=== PATIENT | male | born 1960 | race Caucasian/White ===

== ENCOUNTER 2018-06-02 13:31 | Inpatient (IN) | payer SELFPAY ==
[~2018-06-02] VITALS: Ht 175.3 cm; Wt 102.1 kg
[2018-06-02] MEDS ORDERED: IV NORMAL SALINE 1000ML BAG 1,000 ML IV ONE ×2 (14:15→15:30)
[2018-06-02] MEDS ORDERED: ONDANSETRON PF 4 MG/2 ML VIAL. IV ONE (14:15)
[2018-06-02] MEDS ORDERED: MORPHINE SULFATE 4 MG/ML VIAL. IV ONE (14:15)
--- NOTE | 2018-06-02 14:33 | PHYS DOC ---
Past Medical History Past Medical History: No Pertinent History Past Surgical History: Appendectomy, Other Additional Past Surgical Histo: BACK AND EYE Alcohol Use: Occasionally Drug Use: None Adult General Chief Complaint Chief Complaint: Neck Pain HPI HPI Patient is a 58 year old male with history of some recurrent soft tissue infections who presents with large tender swollen region over the base of right occiput. Symptom onset yesterday. Patient states the skin areas since grown rapidly. Reports intense pain worse with palpation and movement. Pain is currently rated 10 out of 10. Reports chills, no fever nausea or sweats. Patient also with superficial skin lesion over right oral eyebrow and larger patches cellulitis over right torso. Patient is not on diabetic. No other acute symptoms or complaints. [] Review of Systems Review of Systems Review symptoms as per history of present illness. All other review symptoms are negative. [] All other systems were reviewed and found to be within normal limits, except as documented in this note. Current Medications Current Medications Current Medications Medications (Trade) Dose Ordered Sig/Kole Start Time Stop Time Status Last Admin Dose Admin Iohexol (Omnipaque 300 Mg/ml) 75 ml 1X ONCE 06/02/18 14:45 06/02/18 14:46 DC 06/02/18 15:13 75 ML Morphine Sulfate (Morphine Sulfate) 4 mg 1X ONCE 06/02/18 14:15 06/02/18 14:16 DC 06/02/18 14:34 4 MG Ondansetron HCl (Zofran) 4 mg 1X ONCE 06/02/18 14:15 06/02/18 14:16 DC 06/02/18 14:35 4 MG Sodium Chloride 1,000 ml @ 1,000 mls/hr 1X ONCE 06/02/18 15:30 06/02/18 16:29 Vancomycin HCl (Vanco Per Pharmacy) 1 each PRN DAILY PRN 06/02/18 15:30 UNV Vancomycin HCl 2 gm/Sodium Chloride 500 ml @ 250 mls/hr 1X ONCE 06/02/18 16:00 06/02/18 17:59 06/02/18 15:49 250 MLS/HR Allergies Allergies Allergies Coded Allergies Type Severity Reaction Last Updated Verified No Known Drug Allergies 01/07/16 No Physical Exam Physical Exam Constitutional: Well developed, well nourished, no acute distress, non-toxic appearance. [] HENT: Normocephalic, off tissue infection, base of right occiput, extending into neck, tenderto palpation, rated, no appreciated pointing or shortness, bilateral external ears normal, oropharynx moist, no oral exudates, nose normal. [] Eyes: PERRLA, EOMI, conjunctiva normal. [] Neck: Albaro, . [] Cardiovascular:Heart rate regular rhythm, no murmur [] Lungs & Thorax: Bilateral breath sounds clear to auscultation [] Abdomen: Bowel sounds normal, soft, no tenderness, no masses, no pulsatile masses. [] Skin: Warm, dry, no erythema, no rash. [] Back: No tenderness, no CVA tenderness. [] Extremities: No tenderness, no cyanosis, no clubbing, ROM intact, no edema. [] Neurologic: Alert and oriented X 3, normal motor function, normal sensory function, no focal deficits noted. [] Psychologic: Affect normal, judgement normal, mood normal. [] Current Patient Data Vital Signs Vital Signs Date Time Temp Pulse Resp B/P (MAP) Pulse Ox O2 Delivery O2 Flow Rate FiO2 06/02/18 14:34 24 06/02/18 14:04 98.3 70 125/67 (86) 94 Room Air 98.3 Lab Values Laboratory Tests Test 06/02/18 14:20 White Blood Count 15.3 x10^3/uL (4.0-11.0) H Red Blood Count 4.89 x10^6/uL (4.30-5.70) Hemoglobin 14.9 g/dL (13.0-17.5) Hematocrit 43.2 % (39.0-53.0) Mean Corpuscular Volume 89 fL (79-100) Mean Corpuscular Hemoglobin 30 pg (25-35) Mean Corpuscular Hemoglobin Concent 34 g/dL (31-37) Red Cell Distribution Width 14.3 % (11.5-14.5) Platelet Count 195 x10^3/uL (140-400) Neutrophils (%) (Auto) 82 % (31-73) H Lymphocytes (%) (Auto) 9 % (24-48) L Monocytes (%) (Auto) 7 % (0-9) Eosinophils (%) (Auto) 1 % (0-3) Basophils (%) (Auto) 1 % (0-3) Neutrophils # (Auto) 12.5 x10^3uL (1.8-7.7) H Lymphocytes # (Auto) 1.4 x10^3/uL (1.0-4.8) Monocytes # (Auto) 1.1 x10^3/uL (0.0-1.1) Eosinophils # (Auto) 0.2 x10^3/uL (0.0-0.7) Basophils # (Auto) 0.2 x10^3/uL (0.0-0.2) Sodium Level 138 mmol/L (136-145) Potassium Level 3.3 mmol/L (3.5-5.1) L Chloride Level 102 mmol/L (98-107) Carbon Dioxide Level 24 mmol/L (21-32) Anion Gap 12 (6-14) Blood Urea Nitrogen 9 mg/dL (8-26) Creatinine 1.0 mg/dL (0.7-1.3) Estimated GFR (Cockcroft-Gault) 77.0 BUN/Creatinine Ratio 9 (6-20) Glucose Level 130 mg/dL (70-99) H Lactic Acid Level 2.9 mmol/L (0.4-2.0) H Calcium Level 8.5 mg/dL (8.5-10.1) Total Bilirubin 0.5 mg/dL (0.2-1.0) Aspartate Amino Transferase (AST) 24 U/L (15-37) Alanine Aminotransferase (ALT) 48 U/L (16-63) Alkaline Phosphatase 147 U/L (46-116) H C-Reactive Protein, Quantitative 15.5 mg/L (0-3.3) H Total Protein 6.7 g/dL (6.4-8.2) Albumin 3.1 g/dL (3.4-5.0) L Albumin/Globulin Ratio 0.9 (1.0-1.7) L Laboratory Tests 06/02/18 14:20 Laboratory Tests 06/02/18 14:20 EKG EKG [] Radiology/Procedures Radiology/Procedures [] Course & Med Decision Making Course & Med Decision Making Pertinent Labs and Imaging studies reviewed. (See chart for details) [Aggressive cellulitis right posterior scalp sending into subcutaneous tissue. IV fluids, antibiotics and pain medication given. Will admit to the hospitalist service for further evaluation and treatment.] Dragon Disclaimer Dragon Disclaimer This electronic medical record was generated, in whole or in part, using a voice recognition dictation system. Departure Departure Impression: Primary Impression: Cellulitis of scalp Additional Impression: Cellulitis of neck Disposition: 09 ADMITTED INPATIENT Admitting Physician: Rusty Gallo Condition: GUARDED Referrals: NO PCP (PCP) Problem Qualifiers SONIYA MORILLO DO Jun 02, 2018 14:33
[2018-06-02 14:34] LABS: BASO # 0.2 x10^3/uL (0.0-0.2); BASO % 1 % (0-3); EOS # 0.2 x10^3/uL (0.0-0.7); EOS % 1 % (0-3); HEMATOCRIT 43.2 % (39.0-53.0); HEMOGLOBIN 14.9 g/dL (13.0-17.5); LYMPH # 1.4 x10^3/uL (1.0-4.8); LYMPH % 9 % (24-48); MEAN CORPUSCULAR HEMOGLOBIN 30 pg (25-35); MEAN CORPUSCULAR HGB CONC 34 g/dL (31-37); MEAN CORPUSCULAR VOLUME 89 fL (79-100); MONO # 1.1 x10^3/uL (0.0-1.1); MONO % 7 % (0-9); NEUT # 12.5 x10^3uL (1.8-7.7); NEUT % 82 % (31-73); PLATELET COUNT 195 x10^3/uL (140-400); RED BLOOD COUNT 4.89 x10^6/uL (4.30-5.70); RED CELL DISTRIBUTION WIDTH 14.3 % (11.5-14.5); WHITE BLOOD COUNT 15.3 x10^3/uL (4.0-11.0)
[2018-06-02] MEDS ORDERED: IOHEXOL 300 MG/ML 100ML VIAL. IV ONE (14:45)
[2018-06-02 14:51] LABS: CALCIUM 8.5 mg/dL (8.5-10.1); POTASSIUM 3.3 mmol/L (3.5-5.1)
[2018-06-02 14:57] LABS: ALBUMIN 3.1 g/dL (3.4-5.0); ALBUMIN/GLOBULIN RATIO 0.9 (1.0-1.7); C-REACTIVE PROTEIN 15.5 mg/L (0-3.3); TOTAL BILIRUBIN 0.5 mg/dL (0.2-1.0); TOTAL PROTEIN 6.7 g/dL (6.4-8.2)
[2018-06-02] MEDS ORDERED: VANCOMYCIN 2 GM in IV NORMAL SALINE 500ML BAG 500 ML IV ONE (16:00)
--- NOTE | 2018-06-02 16:03 | RAD ---
Examination: CT soft tissue neck with IV contrast HISTORY: History of neck mass COMPARISON: None available TECHNIQUE: Axial CT images of the soft tissue neck were performed with IV contrast. Coronal and sagittal reformats are performed Exposure: One or more of the following individualized dose reduction techniques were utilized for this examination: 1. Automated exposure control 2. Adjustment of the mA and/or kV according to patient size 3. Use of iterative reconstruction technique FINDINGS: The visualized intracranial portion grossly appears unremarkable. The bilateral orbital globes appear intact. The visualized parotid glands, parapharyngeal spaces, flyer builder spaces, grossly appears unremarkable. The visualized piriform sinuses, vallecula are unremarkable. The visualized vocal cord grossly appears unremarkable. The visualized thyroid gland appears homogeneous. There is moderate fat stranding identified in the posterior right neck region in the subcutaneous region and abutting the right posterior neck muscles likely cellulitis with small prominent posterior cervical lymph nodes with the largest measuring 1 cm. The fat stranding in the subcutaneous region of the posterior right neck extends from the posterior to the right parotid gland to the midline of the posterior neck. Mild atelectasis apical lungs. Examination limited due to positioning of the neck CT gantry. Moderate degenerative changes identified in the cervical spine. The mastoid air cells are clear. IMPRESSION: 1. Moderate inflammatory fat stranding identified in the subcutaneous region of the posterior neck abutting the right posterior neck muscles likely cellulitis with few prominent posterior cervical lymph nodes likely reactive lymphadenopathy. Electronically signed by: Renny Beltran MD (06/02/2018 4:00 PM) [id number]
[2018-06-02] MEDS ORDERED: ONDANSETRON PF 4 MG/2 ML VIAL. IV PRN (16:45)
[2018-06-02] MEDS: MEROPENEM 500 MG in IV NORMAL SALINE 50ML 50 ML IV SCH (17:10)
[2018-06-02] MEDS: VANCOMYCIN PER PHARMACY MC PRN (17:51)
--- NOTE | 2018-06-02 18:33 | PDOC1 ---
History and Physical Date of Admission Date of Admission DATE: 06/02/18 TIME: 18:32 Identification/Chief Complaint Chief Complaint presents TO ER with large tender swollen region over the base of right occiput , onset yesterday. states the skin areas since grown rapidly. SWELLING intense pain worse with palpation and movement. Pain is currently rated 10 out of 10. Reports chills Past Medical History Past Medical History Past Medical History Past Medical History: No Pertinent History Past Surgical History: Appendectomy, Other Additional Past Surgical Histo: BACK AND EYE Alcohol Use: Occasionally Drug Use: None SMOKES FAMILY HX HTN Musculoskeletal: Osteoarthritis Rheumatologic: No pertinent hx ENT: No pertinent hx Renal/: No pertinent hx Dermatology: Rash Past Surgical History Past Surgical History: No pertinent history Family History Family History: Hypertension Social History Smoke: <1 pack per day ALCOHOL: none Drugs: None Current Problem List Problem List Problems Medical Problems: (1) Cellulitis of neck Status: Acute (2) Cellulitis of scalp Status: Acute Current Medications Current Medications Current Medications Morphine Sulfate (Morphine Sulfate) 4 mg 1X ONCE IV Last administered on at 14:34; Start 06/02/18 at 14:15; Stop 06/02/18 at 14:16; Status DC Ondansetron HCl (Zofran) 4 mg 1X ONCE IV Last administered on 06/02/18at 14:35 ; Start 06/02/18 at 14:15; Stop 06/02/18 at 14:16; Status DC Sodium Chloride 1,000 ml @ 1,000 mls/hr 1X ONCE IV Last administered on at 14:33; Start 06/02/18 at 14:15; Stop 06/02/18 at 15:14; Status DC Iohexol (Omnipaque 300 Mg/ml) 75 ml 1X ONCE IV Last administered on 06/02/18at 15:13; Start 06/02/18 at 14:45; Stop 06/02/18 at 14:46; Status DC Sodium Chloride 1,000 ml @ 1,000 mls/hr 1X ONCE IV Last administered on at 17:00; Start 06/02/18 at 15:30; Stop 06/02/18 at 16:29; Status DC Vancomycin HCl (Vanco Per Pharmacy) 1 each PRN DAILY PRN MC SEE COMMENTS Last administered on 06/02/18at 17:51; Start 06/02/18 at 15:30 Vancomycin HCl 2 gm/Sodium Chloride 500 ml @ 250 mls/hr 1X ONCE IV Last administered on 06/02/18at 15:49; Start 06/02/18 at 16:00; Stop 06/02/18 at 17:59 ; Status DC Ondansetron HCl (Zofran) 4 mg PRN Q8HRS PRN IV NAUSEA/VOMITING; Start 06/02/18 at 16:45; Stop 06/03/18 at 16:44 Morphine Sulfate (Morphine Sulfate) 2 mg PRN Q2HR PRN IV PAIN; Start 06/02/18 at 16:45; Stop 06/03/18 at 16:44 Sodium Chloride 1,000 ml @ 150 mls/hr Q6H40M IV ; Start 06/02/18 at 16:41; Stop 06/03/18 at 16:40 Meropenem 500 mg/ Sodium Chloride 50 ml @ 100 mls/hr Q8H IV Last administered on 06/02/18at 17:10; Start 06/02/18 at 17:00 Vancomycin HCl 1.5 gm/Sodium Chloride 500 ml @ 250 mls/hr Q12H IV ; Start 06/11 at 04:00 Vancomycin HCl (Vancomycin Trough Level) 1 each 1X ONCE MC ; Start 06/04/18 at 03:30; Stop 06/04/18 at 03:31 Allergies Allergies: Coded Allergies: No Known Drug Allergies (Unverified , 01/07/16) ROS Review of System Review of Systems Review of Systems Review symptoms as per history of present illness. All other review symptoms are negative. [] 14 PT systems were reviewed and found to be within normal limits, except as documented . General: YES: Chills PSYCHOLOGICAL ROS: No: Anxiety, Behavioral Disorder, Concentration difficultie , Decreased libido, Depression, Disorientation, Hallucinations, Hostility, Irritablity, Memory difficulties, Mood Swings, Obsessive thoughts, Physical abuse, Sexual abuse, Sleep disturbances, Suicidal ideation, Other Eyes: No Blurry vision, No Decreased vision, No Double vision, No Dry eyes, No Excessive tearing, No Eye Pain, No Itchy Eyes, No Loss of vision, No Photophobia , No Scotomata, No Uses contacts, No Uses glasses, No Other Hematological and Lymphatic: No: Bleeding Problems, Blood Clots, Blood Transfusions, Brusing, Night Sweats, Pallor, Swollen Lymph Nodes, Other Respiratory: No: Cough, Hemoptysis, Orthopnea, Pleuritic Pain, Shortness of breath, SOB with excertion, Sputum Changes, Stridor, Tachypnea, Wheezing, Other Gastrointestinal: No Nausea, No Vomiting, No Abdominal Pain, No Diarrhea, No Constipation, No Melena, No Hematochezia, No Other Neurological: No Behavorial Changes, No Bowel/Bladder ControlChng, No Confusion , No Dizziness, No Gait Disturbance, No Headaches, No Impaired Coord/balance, No Memory Loss, No Numbness/Tingling, No Seizures, No Speech Problems, No Tremors, No Visual Changes, No Weakness, No Other Skin: Yes Rash Physical Exam Physical Exam Constitutional: Well developed, well nourished, no acute distress, non-toxic appearance. [] HENT: Normocephalic, off tissue infection, base of right occiput, extending into neck, tender to palpation, rated, no appreciated pointing or shortness, bilateral external ears normal, oropharynx moist, no oral exudates, nose normal. [] Eyes: PERRLA, EOMI, conjunctiva normal. [] Neck: Albaro, . [] Cardiovascular:Heart rate regular rhythm, no murmur [] Lungs & Thorax: Bilateral breath sounds clear to auscultation [] Abdomen: Bowel sounds normal, soft, no tenderness, no masses, no pulsatile masses. [] Skin: Warm, dry, no erythema, no rash. [] Back: No tenderness, no CVA tenderness. [] Extremities: No tenderness, no cyanosis, no clubbing, ROM intact, no edema. [] General: Alert, Oriented X3, Cooperative HEENT: Atraumatic Lungs: Clear to auscultation Heart: S1S2, RRR Cardiovascular: S1 Breasts: Not examined Abdomen: Normal bowel sounds, Soft Rectal Exam: not examined PELVIC: Examination not indicated Extremities: No clubbing, No cyanosis Neuro: Normal speech, Sensation intact, Cranial nerves 3-12 NL Psych/Mental Status: Mental status NL, Mood NL Vitals Vitals Vital Signs Date Time Temp Pulse Resp B/P (MAP) Pulse Ox O2 Delivery O2 Flow Rate FiO2 06/02/18 17:30 64 16 Room Air 06/02/18 17:00 95 06/02/18 15:30 126/59 (81) 06/02/18 14:04 98.3 98.3 Labs Labs Laboratory Tests Test 06/02/18 14:20 White Blood Count 15.3 x10^3/uL (4.0-11.0) Red Blood Count 4.89 x10^6/uL (4.30-5.70) Hemoglobin 14.9 g/dL (13.0-17.5) Hematocrit 43.2 % (39.0-53.0) Mean Corpuscular Volume 89 fL (79-100) Mean Corpuscular Hemoglobin 30 pg (25-35) Mean Corpuscular Hemoglobin Concent 34 g/dL (31-37) Red Cell Distribution Width 14.3 % (11.5-14.5) Platelet Count 195 x10^3/uL (140-400) Neutrophils (%) (Auto) 82 % (31-73) Lymphocytes (%) (Auto) 9 % (24-48) Monocytes (%) (Auto) 7 % (0-9) Eosinophils (%) (Auto) 1 % (0-3) Basophils (%) (Auto) 1 % (0-3) Neutrophils # (Auto) 12.5 x10^3uL (1.8-7.7) Lymphocytes # (Auto) 1.4 x10^3/uL (1.0-4.8) Monocytes # (Auto) 1.1 x10^3/uL (0.0-1.1) Eosinophils # (Auto) 0.2 x10^3/uL (0.0-0.7) Basophils # (Auto) 0.2 x10^3/uL (0.0-0.2) Sodium Level 138 mmol/L (136-145) Potassium Level 3.3 mmol/L (3.5-5.1) Chloride Level 102 mmol/L (98-107) Carbon Dioxide Level 24 mmol/L (21-32) Anion Gap 12 (6-14) Blood Urea Nitrogen 9 mg/dL (8-26) Creatinine 1.0 mg/dL (0.7-1.3) Estimated GFR (Cockcroft-Gault) 77.0 BUN/Creatinine Ratio 9 (6-20) Glucose Level 130 mg/dL (70-99) Lactic Acid Level 2.9 mmol/L (0.4-2.0) Calcium Level 8.5 mg/dL (8.5-10.1) Total Bilirubin 0.5 mg/dL (0.2-1.0) Aspartate Amino Transf (AST/SGOT) 24 U/L (15-37) Alanine Aminotransferase (ALT/SGPT) 48 U/L (16-63) Alkaline Phosphatase 147 U/L (46-116) C-Reactive Protein, Quantitative 15.5 mg/L (0-3.3) Total Protein 6.7 g/dL (6.4-8.2) Albumin 3.1 g/dL (3.4-5.0) Albumin/Globulin Ratio 0.9 (1.0-1.7) Laboratory Tests Test 06/02/18 14:20 White Blood Count 15.3 x10^3/uL (4.0-11.0) Red Blood Count 4.89 x10^6/uL (4.30-5.70) Hemoglobin 14.9 g/dL (13.0-17.5) Hematocrit 43.2 % (39.0-53.0) Mean Corpuscular Volume 89 fL (79-100) Mean Corpuscular Hemoglobin 30 pg (25-35) Mean Corpuscular Hemoglobin Concent 34 g/dL (31-37) Red Cell Distribution Width 14.3 % (11.5-14.5) Platelet Count 195 x10^3/uL (140-400) Neutrophils (%) (Auto) 82 % (31-73) Lymphocytes (%) (Auto) 9 % (24-48) Monocytes (%) (Auto) 7 % (0-9) Eosinophils (%) (Auto) 1 % (0-3) Basophils (%) (Auto) 1 % (0-3) Neutrophils # (Auto) 12.5 x10^3uL (1.8-7.7) Lymphocytes # (Auto) 1.4 x10^3/uL (1.0-4.8) Monocytes # (Auto) 1.1 x10^3/uL (0.0-1.1) Eosinophils # (Auto) 0.2 x10^3/uL (0.0-0.7) Basophils # (Auto) 0.2 x10^3/uL (0.0-0.2) Sodium Level 138 mmol/L (136-145) Potassium Level 3.3 mmol/L (3.5-5.1) Chloride Level 102 mmol/L (98-107) Carbon Dioxide Level 24 mmol/L (21-32) Anion Gap 12 (6-14) Blood Urea Nitrogen 9 mg/dL (8-26) Creatinine 1.0 mg/dL (0.7-1.3) Estimated GFR (Cockcroft-Gault) 77.0 BUN/Creatinine Ratio 9 (6-20) Glucose Level 130 mg/dL (70-99) Lactic Acid Level 2.9 mmol/L (0.4-2.0) Calcium Level 8.5 mg/dL (8.5-10.1) Total Bilirubin 0.5 mg/dL (0.2-1.0) Aspartate Amino Transf (AST/SGOT) 24 U/L (15-37) Alanine Aminotransferase (ALT/SGPT) 48 U/L (16-63) Alkaline Phosphatase 147 U/L (46-116) C-Reactive Protein, Quantitative 15.5 mg/L (0-3.3) Total Protein 6.7 g/dL (6.4-8.2) Albumin 3.1 g/dL (3.4-5.0) Albumin/Globulin Ratio 0.9 (1.0-1.7) VTE Prophylaxis Ordered VTE Prophylaxis Devices: Yes VTE Pharmacological Prophylaxi: Yes Assessment/Plan Assessment/Plan IMPRESSION Soft tissue infection of posterior neck SEPSIS plan iv vanc ID CONSULT PAIN CONTROL SQ LOVENOX DVT PROPHYLAXIS SEPSIS PROTOCOL BLANCA GUEVARA MD Jun 02, 2018 18:32
[2018-06-02] MEDS: IV NORMAL SALINE 1000ML BAG 1,000 ML IV SCH ×5 (18:57→22:04)
[2018-06-02] MEDS: MORPHINE SULFATE 2 MG/ML VIAL. IV PRN ×2 (18:58→22:10)
[2018-06-02 19:00] VITALS: BP 95/54
[2018-06-02] MEDS ORDERED: IV NORMAL SALINE 500ML BAG 500 ML IV PRN (19:15)
[2018-06-02] MEDS ORDERED: NOREPINEPHRIN 8MG/250ML PREMIX 250 ML IV PRN (19:15)
[2018-06-02] MEDS ORDERED: VANCOMYCIN PER PHARMACY MC PRN (19:15)
[2018-06-02] MEDS ORDERED: POTASSIUM CHLORIDE 20 MEQ TABLET.ER. PO ONE (19:30)
[2018-06-02 19:48] LABS: PROTHROMBIN TIME PATIENT 12.7 SEC (11.7-14.0)
[2018-06-02] MEDS: ENOXAPARIN 40 MG/0.4 ML SYRINGE. SQ SCH (20:38)
[2018-06-02 23:00] VITALS: BP 152/85
[2018-06-03] MEDS: MEROPENEM 500 MG in IV NORMAL SALINE 50ML 50 ML IV SCH ×3 (00:57→17:33)
[2018-06-03] MEDS: MORPHINE SULFATE 2 MG/ML VIAL. IV PRN (01:32)
[2018-06-03] MEDS: IV NORMAL SALINE 1000ML BAG 1,000 ML IV SCH ×3 (01:33→12:41)
[2018-06-03] MEDS: KETOROLAC 30 MG/ML VIAL. IV PRN ×2 (02:28→20:14)
[2018-06-03] MEDS ORDERED: MORPHINE SULFATE 4 MG/ML VIAL. IV PRN (02:30)
[2018-06-03 03:00] VITALS: BP 115/71
[2018-06-03] MEDS: VANCOMYCIN 1.5 GM in IV NORMAL SALINE 500ML BAG 500 ML IV SCH ×2 (03:49→17:34)
[2018-06-03 05:35] LABS: BASO % 0 % (0-3); EOS # 0.2 x10^3/uL (0.0-0.7); EOS % 1 % (0-3); HEMATOCRIT 43.7 % (39.0-53.0); HEMOGLOBIN 14.7 g/dL (13.0-17.5); LYMPH # 1.4 x10^3/uL (1.0-4.8); LYMPH % 11 % (24-48); MEAN CORPUSCULAR HEMOGLOBIN 30 pg (25-35); MEAN CORPUSCULAR HGB CONC 34 g/dL (31-37); MEAN CORPUSCULAR VOLUME 90 fL (79-100); MONO % 7 % (0-9); NEUT # 10.7 x10^3uL (1.8-7.7); NEUT % 81 % (31-73); PLATELET COUNT 177 x10^3/uL (140-400); RED BLOOD COUNT 4.87 x10^6/uL (4.30-5.70); RED CELL DISTRIBUTION WIDTH 14.9 % (11.5-14.5); WHITE BLOOD COUNT 13.3 x10^3/uL (4.0-11.0)
[2018-06-03 05:50] LABS: ALBUMIN 2.8 g/dL (3.4-5.0); ALBUMIN/GLOBULIN RATIO 0.8 (1.0-1.7); CALCIUM 7.6 mg/dL (8.5-10.1); POTASSIUM 4.1 mmol/L (3.5-5.1); TOTAL BILIRUBIN 0.6 mg/dL (0.2-1.0); TOTAL PROTEIN 6.4 g/dL (6.4-8.2)
[2018-06-03 07:00] VITALS: BP 145/79
--- NOTE | 2018-06-03 10:29 | PDOC ---
Provider Note Provider Note Pt seen and examined ID consult dictated [id number] IMP: RT Neck SSTI CT neck no abscess Fever Leucocytosis and lactic acidosis Rt 4th finger abrasion with swelling Scattered skin lesions in LLE,Rt [place] and chin REC: Cont IV Vanc and merrem Add empiric zyvox Rt hand x ray f/u labs and cults SANJANA ELENA MD Jun 03, 2018 10:29
[2018-06-03 11:00] VITALS: BP 155/87
[2018-06-03] MEDS: LINEZOLID 600 MG TABLET PO SCH ×2 (11:31→20:59)
--- NOTE | 2018-06-03 13:06 | RAD ---
Right hand, 3 views, 06/03/2018: HISTORY: Right fourth finger pain and swelling No fracture or dislocation is identified. No destructive bony lesion is seen. There is mild degenerative change at the second and third MTP joints and scattered interphalangeal joints. Moderate soft tissue swelling is present over the dorsum of the hand in the distal metacarpal region. IMPRESSION: No acute bony abnormality is detected. Electronically signed by: Pk Asencio MD (06/03/2018 1:03 PM) [facility]
--- NOTE | 2018-06-03 13:58 | PDOC ---
PROGRESS NOTES Chief Complaint Chief Complaint Right neck cellulitis Fever Leucocytosis Lactic acidosis Rt 4th finger abrasion with swelling Scattered skin lesions in LLE,Rt Synagogue and chin History of Present Illness History of Present Illness Mr. Mendez is a 70 y/o male who has R neck cellulitis currently on IV antibitoics. ID is following. He is taking SQ lovenox for DVT prophylaxis. At this time he is complaining of pain from his cellulitis. It is diffusely TTP. Will add IV morphine for pain. Pt seen and examined. Pt alert and oriented; affect appropriate VSS DW nursing Vitals Vitals Vital Signs Date Time Temp Pulse Resp B/P (MAP) Pulse Ox O2 Delivery O2 Flow Rate FiO2 06/03/18 11:00 98.8 69 18 155/87 (109) 90 Room Air 98.8 Physical Exam General: Alert, Oriented X3, Cooperative Abdomen: Normal bowel sounds, Soft Extremities: No clubbing, No cyanosis Labs LABS Laboratory Tests Test 06/02/18 14:20 06/02/18 18:15 06/03/18 03:50 White Blood Count 15.3 x10^3/uL (4.0-11.0) 13.3 x10^3/uL (4.0-11.0) Red Blood Count 4.89 x10^6/uL (4.30-5.70) 4.87 x10^6/uL (4.30-5.70) Hemoglobin 14.9 g/dL (13.0-17.5) 14.7 g/dL (13.0-17.5) Hematocrit 43.2 % (39.0-53.0) 43.7 % (39.0-53.0) Mean Corpuscular Volume 89 fL (79-100) 90 fL (79-100) Mean Corpuscular Hemoglobin 30 pg (25-35) 30 pg (25-35) Mean Corpuscular Hemoglobin Concent 34 g/dL (31-37) 34 g/dL (31-37) Red Cell Distribution Width 14.3 % (11.5-14.5) 14.9 % (11.5-14.5) Platelet Count 195 x10^3/uL (140-400) 177 x10^3/uL (140-400) Neutrophils (%) (Auto) 82 % (31-73) 81 % (31-73) Lymphocytes (%) (Auto) 9 % (24-48) 11 % (24-48) Monocytes (%) (Auto) 7 % (0-9) 7 % (0-9) Eosinophils (%) (Auto) 1 % (0-3) 1 % (0-3) Basophils (%) (Auto) 1 % (0-3) 0 % (0-3) Neutrophils # (Auto) 12.5 x10^3uL (1.8-7.7) 10.7 x10^3uL (1.8-7.7) Lymphocytes # (Auto) 1.4 x10^3/uL (1.0-4.8) 1.4 x10^3/uL (1.0-4.8) Monocytes # (Auto) 1.1 x10^3/uL (0.0-1.1) 1.0 x10^3/uL (0.0-1.1) Eosinophils # (Auto) 0.2 x10^3/uL (0.0-0.7) 0.2 x10^3/uL (0.0-0.7) Basophils # (Auto) 0.2 x10^3/uL (0.0-0.2) 0.0 x10^3/uL (0.0-0.2) Prothrombin Time 12.7 SEC (11.7-14.0) Prothromb Time International Ratio 1.0 (0.8-1.1) Activated Partial Thromboplast Time 33 SEC (24-38) Sodium Level 138 mmol/L (136-145) 139 mmol/L (136-145) Potassium Level 3.3 mmol/L (3.5-5.1) 4.1 mmol/L (3.5-5.1) Chloride Level 102 mmol/L (98-107) 105 mmol/L (98-107) Carbon Dioxide Level 24 mmol/L (21-32) 23 mmol/L (21-32) Anion Gap 12 (6-14) 11 (6-14) Blood Urea Nitrogen 9 mg/dL (8-26) 8 mg/dL (8-26) Creatinine 1.0 mg/dL (0.7-1.3) 1.0 mg/dL (0.7-1.3) Estimated GFR (Cockcroft-Gault) 77.0 77.0 BUN/Creatinine Ratio 9 (6-20) 8 (6-20) Glucose Level 130 mg/dL (70-99) 105 mg/dL (70-99) Lactic Acid Level 2.9 mmol/L (0.4-2.0) 0.9 mmol/L (0.4-2.0) Calcium Level 8.5 mg/dL (8.5-10.1) 7.6 mg/dL (8.5-10.1) Total Bilirubin 0.5 mg/dL (0.2-1.0) 0.6 mg/dL (0.2-1.0) Aspartate Amino Transf (AST/SGOT) 24 U/L (15-37) 34 U/L (15-37) Alanine Aminotransferase (ALT/SGPT) 48 U/L (16-63) 50 U/L (16-63) Alkaline Phosphatase 147 U/L (46-116) 142 U/L (46-116) C-Reactive Protein, Quantitative 15.5 mg/L (0-3.3) Total Protein 6.7 g/dL (6.4-8.2) 6.4 g/dL (6.4-8.2) Albumin 3.1 g/dL (3.4-5.0) 2.8 g/dL (3.4-5.0) Albumin/Globulin Ratio 0.9 (1.0-1.7) 0.8 (1.0-1.7) Procalcitonin < 0.10 ng/mL (0.00-0.10) Review of Systems Review of Systems Pt complains of pain from cellulitis, denies SOA, angina. Assessment and Plan Assessmemt and Plan Problems Medical Problems: (1) Cellulitis of neck Status: Acute (2) Cellulitis of scalp Status: Acute Assessment: Right neck cellulitis Fever Leucocytosis Lactic acidosis Rt 4th finger abrasion with swelling Scattered skin lesions in LLE,Rt Synagogue and chin Plan: F/u ID; appreciate input Continue IV antibiotics IV morphine PRN pain Home medications Labs Comment Review of Relevant I have reviewed the following items nhan (where applicable) has been applied. Labs Laboratory Tests Test 06/02/18 14:20 06/02/18 18:15 06/03/18 03:50 White Blood Count 15.3 x10^3/uL (4.0-11.0) 13.3 x10^3/uL (4.0-11.0) Red Blood Count 4.89 x10^6/uL (4.30-5.70) 4.87 x10^6/uL (4.30-5.70) Hemoglobin 14.9 g/dL (13.0-17.5) 14.7 g/dL (13.0-17.5) Hematocrit 43.2 % (39.0-53.0) 43.7 % (39.0-53.0) Mean Corpuscular Volume 89 fL (79-100) 90 fL (79-100) Mean Corpuscular Hemoglobin 30 pg (25-35) 30 pg (25-35) Mean Corpuscular Hemoglobin Concent 34 g/dL (31-37) 34 g/dL (31-37) Red Cell Distribution Width 14.3 % (11.5-14.5) 14.9 % (11.5-14.5) Platelet Count 195 x10^3/uL (140-400) 177 x10^3/uL (140-400) Neutrophils (%) (Auto) 82 % (31-73) 81 % (31-73) Lymphocytes (%) (Auto) 9 % (24-48) 11 % (24-48) Monocytes (%) (Auto) 7 % (0-9) 7 % (0-9) Eosinophils (%) (Auto) 1 % (0-3) 1 % (0-3) Basophils (%) (Auto) 1 % (0-3) 0 % (0-3) Neutrophils # (Auto) 12.5 x10^3uL (1.8-7.7) 10.7 x10^3uL (1.8-7.7) Lymphocytes # (Auto) 1.4 x10^3/uL (1.0-4.8) 1.4 x10^3/uL (1.0-4.8) Monocytes # (Auto) 1.1 x10^3/uL (0.0-1.1) 1.0 x10^3/uL (0.0-1.1) Eosinophils # (Auto) 0.2 x10^3/uL (0.0-0.7) 0.2 x10^3/uL (0.0-0.7) Basophils # (Auto) 0.2 x10^3/uL (0.0-0.2) 0.0 x10^3/uL (0.0-0.2) Prothrombin Time 12.7 SEC (11.7-14.0) Prothromb Time International Ratio 1.0 (0.8-1.1) Activated Partial Thromboplast Time 33 SEC (24-38) Sodium Level 138 mmol/L (136-145) 139 mmol/L (136-145) Potassium Level 3.3 mmol/L (3.5-5.1) 4.1 mmol/L (3.5-5.1) Chloride Level 102 mmol/L (98-107) 105 mmol/L (98-107) Carbon Dioxide Level 24 mmol/L (21-32) 23 mmol/L (21-32) Anion Gap 12 (6-14) 11 (6-14) Blood Urea Nitrogen 9 mg/dL (8-26) 8 mg/dL (8-26) Creatinine 1.0 mg/dL (0.7-1.3) 1.0 mg/dL (0.7-1.3) Estimated GFR (Cockcroft-Gault) 77.0 77.0 BUN/Creatinine Ratio 9 (6-20) 8 (6-20) Glucose Level 130 mg/dL (70-99) 105 mg/dL (70-99) Lactic Acid Level 2.9 mmol/L (0.4-2.0) 0.9 mmol/L (0.4-2.0) Calcium Level 8.5 mg/dL (8.5-10.1) 7.6 mg/dL (8.5-10.1) Total Bilirubin 0.5 mg/dL (0.2-1.0) 0.6 mg/dL (0.2-1.0) Aspartate Amino Transf (AST/SGOT) 24 U/L (15-37) 34 U/L (15-37) Alanine Aminotransferase (ALT/SGPT) 48 U/L (16-63) 50 U/L (16-63) Alkaline Phosphatase 147 U/L (46-116) 142 U/L (46-116) C-Reactive Protein, Quantitative 15.5 mg/L (0-3.3) Total Protein 6.7 g/dL (6.4-8.2) 6.4 g/dL (6.4-8.2) Albumin 3.1 g/dL (3.4-5.0) 2.8 g/dL (3.4-5.0) Albumin/Globulin Ratio 0.9 (1.0-1.7) 0.8 (1.0-1.7) Procalcitonin < 0.10 ng/mL (0.00-0.10) Laboratory Tests Test 06/02/18 14:20 06/02/18 18:15 06/03/18 03:50 White Blood Count 15.3 x10^3/uL (4.0-11.0) 13.3 x10^3/uL (4.0-11.0) Red Blood Count 4.89 x10^6/uL (4.30-5.70) 4.87 x10^6/uL (4.30-5.70) Hemoglobin 14.9 g/dL (13.0-17.5) 14.7 g/dL (13.0-17.5) Hematocrit 43.2 % (39.0-53.0) 43.7 % (39.0-53.0) Mean Corpuscular Volume 89 fL (79-100) 90 fL (79-100) Mean Corpuscular Hemoglobin 30 pg (25-35) 30 pg (25-35) Mean Corpuscular Hemoglobin Concent 34 g/dL (31-37) 34 g/dL (31-37) Red Cell Distribution Width 14.3 % (11.5-14.5) 14.9 % (11.5-14.5) Platelet Count 195 x10^3/uL (140-400) 177 x10^3/uL (140-400) Neutrophils (%) (Auto) 82 % (31-73) 81 % (31-73) Lymphocytes (%) (Auto) 9 % (24-48) 11 % (24-48) Monocytes (%) (Auto) 7 % (0-9) 7 % (0-9) Eosinophils (%) (Auto) 1 % (0-3) 1 % (0-3) Basophils (%) (Auto) 1 % (0-3) 0 % (0-3) Neutrophils # (Auto) 12.5 x10^3uL (1.8-7.7) 10.7 x10^3uL (1.8-7.7) Lymphocytes # (Auto) 1.4 x10^3/uL (1.0-4.8) 1.4 x10^3/uL (1.0-4.8) Monocytes # (Auto) 1.1 x10^3/uL (0.0-1.1) 1.0 x10^3/uL (0.0-1.1) Eosinophils # (Auto) 0.2 x10^3/uL (0.0-0.7) 0.2 x10^3/uL (0.0-0.7) Basophils # (Auto) 0.2 x10^3/uL (0.0-0.2) 0.0 x10^3/uL (0.0-0.2) Prothrombin Time 12.7 SEC (11.7-14.0) Prothromb Time International Ratio 1.0 (0.8-1.1) Activated Partial Thromboplast Time 33 SEC (24-38) Sodium Level 138 mmol/L (136-145) 139 mmol/L (136-145) Potassium Level 3.3 mmol/L (3.5-5.1) 4.1 mmol/L (3.5-5.1) Chloride Level 102 mmol/L (98-107) 105 mmol/L (98-107) Carbon Dioxide Level 24 mmol/L (21-32) 23 mmol/L (21-32) Anion Gap 12 (6-14) 11 (6-14) Blood Urea Nitrogen 9 mg/dL (8-26) 8 mg/dL (8-26) Creatinine 1.0 mg/dL (0.7-1.3) 1.0 mg/dL (0.7-1.3) Estimated GFR (Cockcroft-Gault) 77.0 77.0 BUN/Creatinine Ratio 9 (6-20) 8 (6-20) Glucose Level 130 mg/dL (70-99) 105 mg/dL (70-99) Lactic Acid Level 2.9 mmol/L (0.4-2.0) 0.9 mmol/L (0.4-2.0) Calcium Level 8.5 mg/dL (8.5-10.1) 7.6 mg/dL (8.5-10.1) Total Bilirubin 0.5 mg/dL (0.2-1.0) 0.6 mg/dL (0.2-1.0) Aspartate Amino Transf (AST/SGOT) 24 U/L (15-37) 34 U/L (15-37) Alanine Aminotransferase (ALT/SGPT) 48 U/L (16-63) 50 U/L (16-63) Alkaline Phosphatase 147 U/L (46-116) 142 U/L (46-116) C-Reactive Protein, Quantitative 15.5 mg/L (0-3.3) Total Protein 6.7 g/dL (6.4-8.2) 6.4 g/dL (6.4-8.2) Albumin 3.1 g/dL (3.4-5.0) 2.8 g/dL (3.4-5.0) Albumin/Globulin Ratio 0.9 (1.0-1.7) 0.8 (1.0-1.7) Procalcitonin < 0.10 ng/mL (0.00-0.10) Medications Current Medications Morphine Sulfate (Morphine Sulfate) 4 mg 1X ONCE IV Last administered on at 14:34; Start 06/02/18 at 14:15; Stop 06/02/18 at 14:16; Status DC Ondansetron HCl (Zofran) 4 mg 1X ONCE IV Last administered on 06/02/18at 14:35 ; Start 06/02/18 at 14:15; Stop 06/02/18 at 14:16; Status DC Sodium Chloride 1,000 ml @ 1,000 mls/hr 1X ONCE IV Last administered on at 14:33; Start 06/02/18 at 14:15; Stop 06/02/18 at 15:14; Status DC Iohexol (Omnipaque 300 Mg/ml) 75 ml 1X ONCE IV Last administered on 06/02/18at 15:13; Start 06/02/18 at 14:45; Stop 06/02/18 at 14:46; Status DC Sodium Chloride 1,000 ml @ 1,000 mls/hr 1X ONCE IV Last administered on at 17:00; Start 06/02/18 at 15:30; Stop 06/02/18 at 16:29; Status DC Vancomycin HCl (Vanco Per Pharmacy) 1 each PRN DAILY PRN MC SEE COMMENTS Last administered on 06/02/18at 17:51; Start 06/02/18 at 15:30 Vancomycin HCl 2 gm/Sodium Chloride 500 ml @ 250 mls/hr 1X ONCE IV Last administered on 06/02/18at 15:49; Start 06/02/18 at 16:00; Stop 06/02/18 at 17:59 ; Status DC Ondansetron HCl (Zofran) 4 mg PRN Q8HRS PRN IV NAUSEA/VOMITING; Start 06/02/18 at 16:45; Stop 06/03/18 at 16:44 Morphine Sulfate (Morphine Sulfate) 2 mg PRN Q2HR PRN IV PAIN Last administered on 06/03/18at 01:32; Start 06/02/18 at 16:45; Stop 06/03/18 at 16: 44 Sodium Chloride 1,000 ml @ 150 mls/hr Q6H40M IV Last administered on at 03:50; Start 06/02/18 at 16:41; Stop 06/03/18 at 16:40 Meropenem 500 mg/ Sodium Chloride 50 ml @ 100 mls/hr Q8H IV Last administered on 06/03/18at 08:20; Start 06/02/18 at 17:00 Vancomycin HCl 1.5 gm/Sodium Chloride 500 ml @ 250 mls/hr Q12H IV Last administered on 06/03/18at 03:49; Start 06/03/18 at 04:00 Vancomycin HCl (Vancomycin Trough Level) 1 each 1X ONCE MC ; Start 06/04/18 at 03:30; Stop 06/04/18 at 03:31 Enoxaparin Sodium (Lovenox 40mg Syringe) 40 mg Q24H SQ Last administered on 06/02/18at 20:38; Start 06/02/18 at 21:00 Potassium Chloride (Klor-Con) 40 meq 1X ONCE PO Last administered on at 20:38; Start 06/02/18 at 19:30; Stop 06/02/18 at 19:31; Status DC Sodium Chloride 1,000 ml @ 2,130 mls/hr Q29M IV Last administered on at 20:37; Start 06/02/18 at 19:05; Stop 06/02/18 at 20:05; Status DC Sodium Chloride 500 ml @ 1,000 mls/hr PRN Q30MIN PRN IV SEE COMMENTS; Start 06/02/18 at 19:15 Levofloxacin/ Dextrose 150 ml @ 100 mls/hr Q24H IV ; Start 06/02/18 at 19:15; Stop 06/07/18 at 19:14; Status UNV Vancomycin HCl (Vanco Per Pharmacy) 1 each PRN DAILY PRN MC SEE COMMENTS; Start 06/02/18 at 19:15; Status UNV Linezolid/Dextrose 300 ml @ 300 mls/hr Q12HR IV ; Start 06/02/18 at 21:00; Status UNV Norepinephrine Bitartrate 250 ml @ 0 mls/hr CONT PRN IV SEE I/O RECORD; Start 06/02/18 at 19:15; Status UNV Dobutamine HCl/ Dextrose 250 ml @ 0 mls/hr CONT PRN IV SEE I/O RECORD; Start 06/02/18 at 19:15; Status UNV Ketorolac Tromethamine (Toradol 30mg Vial) 30 mg PRN Q6HRS PRN IV PAIN Last administered on 06/03/18at 02:28; Start 06/03/18 at 02:30; Stop 06/08/18 at 02 :29 Morphine Sulfate (Morphine Sulfate) 4 mg PRN Q2HR PRN IV PAIN Last administered on 06/03/18at 08:20; Start 06/03/18 at 02:30 Linezolid (Zyvox) 600 mg BID PO Last administered on 06/03/18at 11:31; Start 06/03/18 at 11:00 Vitals/I & O Vital Sign - Last 24 Hours 06/02/18 06/02/18 06/02/18 06/02/18 14:04 14:30 14:34 15:30 Temp 98.3 98.3 Pulse 70 78 66 Resp 20 24 18 B/P (MAP) 125/67 (86) 158/72 (100) 126/59 (81) Pulse Ox 94 93 98 O2 Delivery Room Air Room Air Room Air 06/02/18 06/02/18 06/02/18 06/02/18 16:00 16:30 17:00 17:30 Pulse 64 64 58 64 Resp 19 21 18 16 Pulse Ox 95 O2 Delivery Room Air Room Air Room Air Room Air 06/02/18 06/02/18 06/02/18 06/03/18 18:23 19:00 23:00 03:00 Temp 97.7 98.2 101.4 97.7 98.2 101.4 Pulse 58 73 88 Resp 22 20 20 B/P (MAP) 95/54 (68) 152/85 (107) 115/71 (86) Pulse Ox 93 92 94 O2 Delivery Room Air Room Air Room Air Room Air 06/03/18 06/03/18 06/03/18 06/03/18 03:55 07:00 08:00 08:20 Temp 100.6 99.3 100.6 99.3 Pulse 74 Resp 18 B/P (MAP) 145/79 (101) Pulse Ox 90 O2 Delivery Room Air Room Air Room Air 06/03/18 06/03/18 09:13 11:00 Temp 98.8 98.8 Pulse 69 Resp 18 B/P (MAP) 155/87 (109) Pulse Ox 90 O2 Delivery Room Air Room Air Intake and Output 06/02/18 06/02/18 06/03/18 15:00 23:00 07:00 Intake Total 3300 ml 350 ml Balance 3300 ml 350 ml BRENTON MENDEZ III DO Jun 03, 2018 13:58
[2018-06-03] MEDS ORDERED: MORPHINE SULFATE 2 MG/ML VIAL. IV PRN (14:00)
[2018-06-03] MEDS: VANCOMYCIN PER PHARMACY MC PRN (14:31)
[2018-06-03 15:00] VITALS: BP 145/78
--- NOTE | 2018-06-03 16:02 | CONS ---
DATE OF CONSULTATION: 06/03/2018 REFERRING PHYSICIAN: Dr. Landin. REASON FOR CONSULTATION: Right neck cellulitis. HISTORY OF PRESENT ILLNESS: A 58-year-old male admitted through ER yesterday with complaints of neck pain, which started as a small boil in the scalp, gradually worsening with swelling, pain, redness, fevers, chills. For the last 2 days, he said that it started growing rapidly. He also has numerous skin lesions, which popped up later over the right temporal area, chin and left lower leg. Denies any history of insect bite. Denies any history of trauma. 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 He denies being on any antibiotics recently. He had history of skin infection with Staphylococcus, which was treated as outpatient with antibiotics a couple of years ago. Denies any recent procedures. Denies being on any hospitalization recently. PAST MEDICAL HISTORY: Left eye injury with vision loss, appendectomy. REVIEW OF SYSTEMS: Negative except for above in HPI. FAMILY HISTORY: As per HPI. CURRENT MEDICATIONS: IV vancomycin and meropenem. PAST SURGICAL HISTORY: Appendectomy. SOCIAL HISTORY: Smokes less than 1 pack per day. ETOH: None. Drugs: None. Lives alone. No pets. No recent travel.single ,lives alone FAMILY HISTORY: No outdoor activities except for works in construction. ALLERGIES: No known drug allergies. PHYSICAL EXAMINATION: VITAL SIGNS: Temperature 99.3, was 101.4; pulse 74, respiration rate 18, blood pressure 145/79, oxygen saturation 90% on room air. GENERAL: Well-developed, well-nourished male in no acute distress, lying comfortably in bed. HEENT: Normocephalic, atraumatic. Left eye, unable to open completely. Right eye, pupils equal, reactive. Extraocular movements intact. Oral mucosa moist. No thrush. Dentition poor. No oral exudates. NECK: Supple. Right-sided swelling, redness, tenderness to palpation. No underlying fluctuance. LUNGS: Clear bilaterally. HEART: S1, S2. ABDOMEN: Soft, obese. Bowel sounds present. EXTREMITIES: No edema, no cyanosis. Had multiple superficial lesions, 2 over the left lower extremity, 1 over the chin, 1 over the right anglican area without evidence of purulence or underlying fluctuance. Right third finger swelling with superficial skin breakdown. Decreased range of motion, tenderness, no purulence. NEUROLOGIC: Alert and oriented x 3. Grossly nonfocal. PSYCHIATRIC: Appropriate mood and affect. DERMATOLOGIC: No generalized rash except for above. MUSCULOSKELETAL: No decrease in range of motion except for restriction at the neck due to pain on the right side. LABORATORY DATA: WBC 15.3, hemoglobin 14.9, hematocrit 43.2, platelets 195. Sodium 139, potassium 4.1, chloride 105, bicarbonate 23, BUN 8, creatinine 1.0, glucose 105, lactate 2.9, now 0.9, calcium 7.6, alkaline phosphatase 142, albumin 2.8. INR 1.0. Soft tissue neck CT shows moderate inflammatory fat stranding identified in subcutaneous region in the posterior neck abutting the right posterior neck muscles, likely cellulitis with a few prominent posterior cervical lymph nodes, likely reactive lymphadenopathy. IMPRESSION: 1. Sepsis from Soft tissue infection, posterior right neck. No evidence of fluctuance at this time. CT without evidence of fluid collection. 2. Fever and leukocytosis.Improving 3. Lactic acidosis.resolving 4. History of dermatitis affecting left lower extremity, right anglican and chin. No evidence of fluctuance or purulence at this time. 5. Right hand 4th finger abrasion without evidence of purulence at this time. RECOMMENDATIONS: 1. Continue empiric IV vancomycin and meropenem.Monitor renal functions closely 2. We will add empiric Zyvox. 3. Obtain a right hand x-ray. 4. Local wound care. 5. Monitor labs in a.m. and blood cultures. f/u c/s results 6. Continue supportive care. 7.Monitor rt neck posteriorly closely Thank you for consulting Infectious Disease to participate in this patient's care. If you have any questions, do not hesitate to contact me. SANJANA ELENA MD DR: EVIE/baldo JOB#: [id number] / [id number] JANAE
[2018-06-03 19:00] VITALS: BP 162/82
[2018-06-03] MEDS: ENOXAPARIN 40 MG/0.4 ML SYRINGE. SQ SCH (20:59)
[2018-06-03 22:52] VITALS: BP 136/69
[2018-06-04] VITALS (7 sets, daily range): BP systolic 129–167; BP diastolic 65–88
[2018-06-04] MEDS: MEROPENEM 500 MG in IV NORMAL SALINE 50ML 50 ML IV SCH ×4 (01:01→21:57)
[2018-06-04 04:12] LABS: VANC TR 13.5 mcg/mL (10.0-20.0)
[2018-06-04] MEDS: VANCOMYCIN PER PHARMACY MC PRN ×2 (04:50→04:51)
[2018-06-04] MEDS: VANCOMYCIN 1.5 GM in IV NORMAL SALINE 500ML BAG 500 ML IV SCH ×2 (04:54→17:08)
[2018-06-04] MEDS: LINEZOLID 600 MG TABLET PO SCH ×2 (10:05→21:57)
--- NOTE | 2018-06-04 11:12 | PDOC ---
Infectious Disease Note Subjective: Subjective Pt says feels better Rt scalp and neck pain and swelling continues ,slightly improved had fever earlier no headache, n/v/sob/chestpain ROS: ROS Negative except for above. Vital Signs: Vital Signs Vital Signs Date Time Temp Pulse Resp B/P (MAP) Pulse Ox O2 Delivery O2 Flow Rate FiO2 06/04/18 07:00 98.8 60 24 133/86 (102) 98 Nasal Cannula 2.0 98.8 Physical Exam: PHYSICAL EXAM GENERAL: Well-developed, well-nourished male in no acute distress, lying comfortably in bed. HEENT: Normocephalic, atraumatic. Left eye, unable to open completely. Right eye, pupils equal, reactive. Extraocular movements intact. Oral mucosa moist. No thrush. Dentition poor. No oral exudates.Rt scalp swelling and pain, no fluctuance NECK: Supple. Right-sided swelling, redness, tenderness to palpation. No underlying fluctuance. LUNGS: Clear bilaterally. HEART: S1, S2. ABDOMEN: Soft, obese. Bowel sounds present. EXTREMITIES: No edema, no cyanosis. Had multiple superficial lesions, 2 over the left lower extremity, 1 over the chin, 1 over the right jain area without evidence of purulence or underlying fluctuance. Right third finger swelling with superficial skin breakdown. Decreased range of motion, tenderness, no purulence. NEUROLOGIC: Alert and oriented x 3. Grossly nonfocal. PSYCHIATRIC: Appropriate mood and affect. DERMATOLOGIC: No generalized rash except for above. MUSCULOSKELETAL: No decrease in range of motion except for restriction at the neck due to pain on the right side. Medications: Inpatient Meds: Current Medications Medications (Trade) Dose Ordered Sig/Kole Start Time Stop Time Status Last Admin Dose Admin Dobutamine HCl/ Dextrose 250 ml @ 0 mls/hr CONT PRN 06/02/18 19:15 UNV Enoxaparin Sodium (Lovenox 40mg Syringe) 40 mg Q24H 06/02/18 21:00 06/03/18 20:59 40 MG Iohexol (Omnipaque 300 Mg/ml) 75 ml 1X ONCE 06/02/18 14:45 06/02/18 14:46 DC 06/02/18 15:13 75 ML Ketorolac Tromethamine (Toradol 30mg Vial) 30 mg PRN Q6HRS PRN 06/03/18 02:30 10/15/18 02:29 06/03/18 20:14 30 MG Levofloxacin/ Dextrose 150 ml @ 100 mls/hr Q24H 06/02/18 19:15 06/07/18 19:14 UNV Linezolid (Zyvox) 600 mg BID 06/03/18 11:00 06/04/18 10:05 600 MG Linezolid/Dextrose 300 ml @ 300 mls/hr Q12HR 06/02/18 21:00 UNV Meropenem 500 mg/ Sodium Chloride 50 ml @ 100 mls/hr Q8H 06/02/18 17:00 06/04/18 08:06 100 MLS/HR Morphine Sulfate (Morphine Sulfate) 2 mg PRN Q2HR PRN 06/03/18 14:00 06/03/18 17:34 2 MG Norepinephrine Bitartrate 250 ml @ 0 mls/hr CONT PRN 06/02/18 19:15 UNV Ondansetron HCl (Zofran) 4 mg PRN Q8HRS PRN 06/02/18 16:45 06/03/18 16:44 DC Potassium Chloride (Klor-Con) 40 meq 1X ONCE 06/02/18 19:30 06/02/18 19:31 DC 06/02/18 20:38 40 MEQ Sodium Chloride 500 ml @ 1,000 mls/hr PRN Q30MIN PRN 06/02/18 19:15 Vancomycin HCl (Vanco Per Pharmacy) 1 each PRN DAILY PRN 06/02/18 19:15 UNV Vancomycin HCl (Vancomycin Trough Level) 1 each 1X ONCE 06/04/18 03:30 06/04/18 03:31 DC 06/04/18 03:30 1 EACH Vancomycin HCl 1.5 gm/Sodium Chloride 500 ml @ 250 mls/hr Q12H 06/03/18 04:00 06/04/18 04:54 250 MLS/HR Vancomycin HCl 2 gm/Sodium Chloride 500 ml @ 250 mls/hr 1X ONCE 06/02/18 16:00 06/02/18 17:59 DC 06/02/18 15:49 250 MLS/HR Labs: Lab Laboratory Tests Test 06/04/18 03:20 Vancomycin Level Trough 13.5 mcg/mL (10.0-20.0) Vancomycin Last Dose Date 06/03/18 Vancomycin Last Dose Time 1600 Objective: Assessment: 1. Sepsis from Soft tissue infection, rt scalp and posterior right neck. No evidence of fluctuance at this time. CT without evidence of fluid collection. 2. Fever and leukocytosis.Improving 3. Lactic acidosis.resolving 4. History of dermatitis affecting left lower extremity, right jain and chin. No evidence of fluctuance or purulence at this time. 5. Right hand 4th finger abrasion without evidence of purulence at this time. Plan: Plan of Care Continue empiric IV vancomycin, meropenem and Zyvox. monitor renal func closely Local wound care. Monitor labs in a.m. and blood cultures. f/u c/s results Continue supportive care. SANJANA ELENA MD Jun 04, 2018 11:11
[2018-06-04 11:55] LABS: BASO # 0.1 x10^3/uL (0.0-0.2); BASO % 1 % (0-3); CREATININE 0.9 mg/dL (0.7-1.3); EOS # 0.3 x10^3/uL (0.0-0.7); EOS % 2 % (0-3); HEMATOCRIT 43.1 % (39.0-53.0); HEMOGLOBIN 14.4 g/dL (13.0-17.5); LYMPH # 1.3 x10^3/uL (1.0-4.8); LYMPH % 10 % (24-48); MEAN CORPUSCULAR HEMOGLOBIN 30 pg (25-35); MEAN CORPUSCULAR HGB CONC 33 g/dL (31-37); MEAN CORPUSCULAR VOLUME 90 fL (79-100); MONO % 8 % (0-9); NEUT % 79 % (31-73); PLATELET COUNT 179 x10^3/uL (140-400); RED BLOOD COUNT 4.77 x10^6/uL (4.30-5.70); RED CELL DISTRIBUTION WIDTH 15.1 % (11.5-14.5); WHITE BLOOD COUNT 12.6 x10^3/uL (4.0-11.0)
--- NOTE | 2018-06-04 12:10 | PDOC ---
PROGRESS NOTES Chief Complaint Chief Complaint Right neck cellulitis Fever Leucocytosis Lactic acidosis Rt 4th finger abrasion with swelling Scattered skin lesions in LLE,Rt [place] and chin History of Present Illness History of Present Illness Mr. Mcmanus is a 70 y/o male who has R neck cellulitis currently on IV antibitoics. ID is following. He is taking SQ lovenox for DVT prophylaxis. complaining of pain from his right neck cellulitis. It is diffusely TTP. po lortab, or IV morphine for pain. Pt seen and examined. Pt alert and oriented; affect appropriate VSS DW nursing Vitals Vitals Vital Signs Date Time Temp Pulse Resp B/P (MAP) Pulse Ox O2 Delivery O2 Flow Rate FiO2 06/04/18 11:44 98.1 98 20 153/88 (109) 90 Room Air 98.1 06/04/18 08:00 2.0 Physical Exam Physical Exam GENERAL: Well-developed, well-nourished male in no acute distress, lying comfortably in bed. HEENT: Normocephalic, atraumatic. Left eye, unable to open completely. Right eye, pupils equal, reactive. Extraocular movements intact. Oral mucosa moist. No thrush. Dentition poor. No oral exudates.Rt scalp swelling and pain, no fluctuance NECK: Supple. Right-sided swelling, redness, tenderness to palpation. No underlying fluctuance. LUNGS: Clear bilaterally. HEART: S1, S2. ABDOMEN: Soft, obese. Bowel sounds present. EXTREMITIES: No edema, no cyanosis. Had multiple superficial lesions, 2 over the left lower extremity, 1 over the chin, 1 over the right religious area without evidence of purulence or underlying fluctuance. Right third finger swelling with superficial skin breakdown. Decreased range of motion, tenderness, no purulence. NEUROLOGIC: Alert and oriented x 3. Grossly nonfocal. PSYCHIATRIC: Appropriate mood and affect. DERMATOLOGIC: No generalized rash except for above. MUSCULOSKELETAL: No decrease in range of motion except for restriction at the neck due to pain on the right side. NECK: . Right-sided swelling, redness, tenderness to palpation. No underlying fluctuance. General: Alert, Oriented X3, Cooperative, moderate distress Heart: Regular rate, Normal S1, No murmurs Lungs: Clear Abdomen: Normal bowel sounds, Soft, No tenderness Extremities: No clubbing, No cyanosis, No edema Labs LABS Laboratory Tests Test 06/04/18 03:20 Sodium Level 141 mmol/L (136-145) Potassium Level 4.0 mmol/L (3.5-5.1) Chloride Level 106 mmol/L (98-107) Carbon Dioxide Level 24 mmol/L (21-32) Anion Gap 11 (6-14) Blood Urea Nitrogen 9 mg/dL (8-26) Creatinine 0.9 mg/dL (0.7-1.3) Estimated GFR (Cockcroft-Gault) 87.0 Glucose Level 123 mg/dL (70-99) Calcium Level 8.0 mg/dL (8.5-10.1) Vancomycin Level Trough 13.5 mcg/mL (10.0-20.0) Vancomycin Last Dose Date 06/03/18 Vancomycin Last Dose Time 1600 Assessment and Plan Assessmemt and Plan Problems Medical Problems: (1) Cellulitis of neck Status: Acute (2) Cellulitis of scalp Status: Acute Comment Review of Relevant I have reviewed the following items nhan (where applicable) has been applied. Labs Laboratory Tests Test 06/02/18 14:20 06/02/18 18:15 06/03/18 03:50 06/03/18 10:43 White Blood Count 15.3 x10^3/uL (4.0-11.0) 13.3 x10^3/uL (4.0-11.0) Red Blood Count 4.89 x10^6/uL (4.30-5.70) 4.87 x10^6/uL (4.30-5.70) Hemoglobin 14.9 g/dL (13.0-17.5) 14.7 g/dL (13.0-17.5) Hematocrit 43.2 % (39.0-53.0) 43.7 % (39.0-53.0) Mean Corpuscular Volume 89 fL (79-100) 90 fL (79-100) Mean Corpuscular Hemoglobin 30 pg (25-35) 30 pg (25-35) Mean Corpuscular Hemoglobin Concent 34 g/dL (31-37) 34 g/dL (31-37) Red Cell Distribution Width 14.3 % (11.5-14.5) 14.9 % (11.5-14.5) Platelet Count 195 x10^3/uL (140-400) 177 x10^3/uL (140-400) Neutrophils (%) (Auto) 82 % (31-73) 81 % (31-73) Lymphocytes (%) (Auto) 9 % (24-48) 11 % (24-48) Monocytes (%) (Auto) 7 % (0-9) 7 % (0-9) Eosinophils (%) (Auto) 1 % (0-3) 1 % (0-3) Basophils (%) (Auto) 1 % (0-3) 0 % (0-3) Neutrophils # (Auto) 12.5 x10^3uL (1.8-7.7) 10.7 x10^3uL (1.8-7.7) Lymphocytes # (Auto) 1.4 x10^3/uL (1.0-4.8) 1.4 x10^3/uL (1.0-4.8) Monocytes # (Auto) 1.1 x10^3/uL (0.0-1.1) 1.0 x10^3/uL (0.0-1.1) Eosinophils # (Auto) 0.2 x10^3/uL (0.0-0.7) 0.2 x10^3/uL (0.0-0.7) Basophils # (Auto) 0.2 x10^3/uL (0.0-0.2) 0.0 x10^3/uL (0.0-0.2) Prothrombin Time 12.7 SEC (11.7-14.0) Prothromb Time International Ratio 1.0 (0.8-1.1) Activated Partial Thromboplast Time 33 SEC (24-38) Sodium Level 138 mmol/L (136-145) 139 mmol/L (136-145) Potassium Level 3.3 mmol/L (3.5-5.1) 4.1 mmol/L (3.5-5.1) Chloride Level 102 mmol/L (98-107) 105 mmol/L (98-107) Carbon Dioxide Level 24 mmol/L (21-32) 23 mmol/L (21-32) Anion Gap 12 (6-14) 11 (6-14) Blood Urea Nitrogen 9 mg/dL (8-26) 8 mg/dL (8-26) Creatinine 1.0 mg/dL (0.7-1.3) 1.0 mg/dL (0.7-1.3) Estimated GFR (Cockcroft-Gault) 77.0 77.0 BUN/Creatinine Ratio 9 (6-20) 8 (6-20) Glucose Level 130 mg/dL (70-99) 105 mg/dL (70-99) Lactic Acid Level 2.9 mmol/L (0.4-2.0) 0.9 mmol/L (0.4-2.0) Calcium Level 8.5 mg/dL (8.5-10.1) 7.6 mg/dL (8.5-10.1) Total Bilirubin 0.5 mg/dL (0.2-1.0) 0.6 mg/dL (0.2-1.0) Aspartate Amino Transf (AST/SGOT) 24 U/L (15-37) 34 U/L (15-37) Alanine Aminotransferase (ALT/SGPT) 48 U/L (16-63) 50 U/L (16-63) Alkaline Phosphatase 147 U/L (46-116) 142 U/L (46-116) C-Reactive Protein, Quantitative 15.5 mg/L (0-3.3) Total Protein 6.7 g/dL (6.4-8.2) 6.4 g/dL (6.4-8.2) Albumin 3.1 g/dL (3.4-5.0) 2.8 g/dL (3.4-5.0) Albumin/Globulin Ratio 0.9 (1.0-1.7) 0.8 (1.0-1.7) Procalcitonin < 0.10 ng/mL (0.00-0.10) Nasal Screen MRSA (PCR) Negative (Negative) Test 06/04/18 03:20 Sodium Level 141 mmol/L (136-145) Potassium Level 4.0 mmol/L (3.5-5.1) Chloride Level 106 mmol/L (98-107) Carbon Dioxide Level 24 mmol/L (21-32) Anion Gap 11 (6-14) Blood Urea Nitrogen 9 mg/dL (8-26) Creatinine 0.9 mg/dL (0.7-1.3) Estimated GFR (Cockcroft-Gault) 87.0 Glucose Level 123 mg/dL (70-99) Calcium Level 8.0 mg/dL (8.5-10.1) Vancomycin Level Trough 13.5 mcg/mL (10.0-20.0) Vancomycin Last Dose Date 06/03/18 Vancomycin Last Dose Time 1600 Laboratory Tests Test 06/04/18 03:20 Sodium Level 141 mmol/L (136-145) Potassium Level 4.0 mmol/L (3.5-5.1) Chloride Level 106 mmol/L (98-107) Carbon Dioxide Level 24 mmol/L (21-32) Anion Gap 11 (6-14) Blood Urea Nitrogen 9 mg/dL (8-26) Creatinine 0.9 mg/dL (0.7-1.3) Estimated GFR (Cockcroft-Gault) 87.0 Glucose Level 123 mg/dL (70-99) Calcium Level 8.0 mg/dL (8.5-10.1) Vancomycin Level Trough 13.5 mcg/mL (10.0-20.0) Vancomycin Last Dose Date 06/03/18 Vancomycin Last Dose Time 1600 Microbiology 06/02/18 Blood Culture - Preliminary, Resulted NO GROWTH AFTER 1 DAY Medications Current Medications Morphine Sulfate (Morphine Sulfate) 4 mg 1X ONCE IV Last administered on at 14:34; Start 06/02/18 at 14:15; Stop 06/02/18 at 14:16; Status DC Ondansetron HCl (Zofran) 4 mg 1X ONCE IV Last administered on 06/02/18at 14:35 ; Start 06/02/18 at 14:15; Stop 06/02/18 at 14:16; Status DC Sodium Chloride 1,000 ml @ 1,000 mls/hr 1X ONCE IV Last administered on at 14:33; Start 06/02/18 at 14:15; Stop 06/02/18 at 15:14; Status DC Iohexol (Omnipaque 300 Mg/ml) 75 ml 1X ONCE IV Last administered on 06/02/18at 15:13; Start 06/02/18 at 14:45; Stop 06/02/18 at 14:46; Status DC Sodium Chloride 1,000 ml @ 1,000 mls/hr 1X ONCE IV Last administered on at 17:00; Start 06/02/18 at 15:30; Stop 06/02/18 at 16:29; Status DC Vancomycin HCl (Vanco Per Pharmacy) 1 each PRN DAILY PRN MC SEE COMMENTS Last administered on 06/04/18at 04:51; Start 06/02/18 at 15:30 Vancomycin HCl 2 gm/Sodium Chloride 500 ml @ 250 mls/hr 1X ONCE IV Last administered on 06/02/18at 15:49; Start 06/02/18 at 16:00; Stop 06/02/18 at 17:59 ; Status DC Ondansetron HCl (Zofran) 4 mg PRN Q8HRS PRN IV NAUSEA/VOMITING; Start 06/02/18 at 16:45; Stop 06/03/18 at 16:44; Status DC Morphine Sulfate (Morphine Sulfate) 2 mg PRN Q2HR PRN IV PAIN Last administered on 06/03/18at 01:32; Start 06/02/18 at 16:45; Stop 06/03/18 at 14: 04; Status DC Sodium Chloride 1,000 ml @ 150 mls/hr Q6H40M IV Last administered on at 03:50; Start 06/02/18 at 16:41; Stop 06/03/18 at 16:40; Status DC Meropenem 500 mg/ Sodium Chloride 50 ml @ 100 mls/hr Q8H IV Last administered on 06/04/18at 08:06; Start 06/02/18 at 17:00 Vancomycin HCl 1.5 gm/Sodium Chloride 500 ml @ 250 mls/hr Q12H IV Last administered on 06/04/18at 04:54; Start 06/03/18 at 04:00 Vancomycin HCl (Vancomycin Trough Level) 1 each 1X ONCE MC Last administered on 06/04/18at 03:30; Start 06/04/18 at 03:30; Stop 06/04/18 at 03:31; Status DC Enoxaparin Sodium (Lovenox 40mg Syringe) 40 mg Q24H SQ Last administered on 06/11at 20:59; Start 06/02/18 at 21:00 Potassium Chloride (Klor-Con) 40 meq 1X ONCE PO Last administered on at 20:38; Start 06/02/18 at 19:30; Stop 06/02/18 at 19:31; Status DC Sodium Chloride 1,000 ml @ 2,130 mls/hr Q29M IV Last administered on at 20:37; Start 06/02/18 at 19:05; Stop 06/02/18 at 20:05; Status DC Sodium Chloride 500 ml @ 1,000 mls/hr PRN Q30MIN PRN IV SEE COMMENTS; Start 06/02/18 at 19:15 Levofloxacin/ Dextrose 150 ml @ 100 mls/hr Q24H IV ; Start 06/02/18 at 19:15; Stop 06/07/18 at 19:14; Status UNV Vancomycin HCl (Vanco Per Pharmacy) 1 each PRN DAILY PRN MC SEE COMMENTS; Start 06/02/18 at 19:15; Status UNV Linezolid/Dextrose 300 ml @ 300 mls/hr Q12HR IV ; Start 06/02/18 at 21:00; Status UNV Norepinephrine Bitartrate 250 ml @ 0 mls/hr CONT PRN IV SEE I/O RECORD; Start 06/02/18 at 19:15; Status UNV Dobutamine HCl/ Dextrose 250 ml @ 0 mls/hr CONT PRN IV SEE I/O RECORD; Start 06/02/18 at 19:15; Status UNV Ketorolac Tromethamine (Toradol 30mg Vial) 30 mg PRN Q6HRS PRN IV PAIN Last administered on 06/03/18at 20:14; Start 06/03/18 at 02:30; Stop 06/08/18 at 02 :29 Morphine Sulfate (Morphine Sulfate) 4 mg PRN Q2HR PRN IV PAIN Last administered on 06/03/18at 08:20; Start 06/03/18 at 02:30; Stop 06/03/18 at 14 :05; Status DC Linezolid (Zyvox) 600 mg BID PO Last administered on 06/04/18at 10:05; Start 06/03/18 at 11:00 Morphine Sulfate (Morphine Sulfate) 2 mg PRN Q2HR PRN IV MODERATE PAIN Last administered on 06/03/18at 17:34; Start 06/03/18 at 14:00 Vitals/I & O Vital Sign - Last 24 Hours 06/03/18 06/03/18 06/03/18 06/03/18 15:00 17:34 19:00 19:14 Temp 98.0 100.5 98.0 100.5 Pulse 67 65 Resp 18 24 B/P (MAP) 145/78 (100) 162/82 (108) Pulse Ox 93 93 90 93 O2 Delivery Room Air Room Air Nasal Cannula Room Air 06/03/18 06/04/18 06/04/18 06/04/18 22:52 03:00 07:00 08:00 Temp 100.1 98.8 98.8 100.1 98.8 98.8 Pulse 60 72 60 Resp 24 20 24 B/P (MAP) 136/69 (91) 167/83 (111) 133/86 (102) Pulse Ox 92 93 98 O2 Delivery Nasal Cannula Nasal Cannula Nasal Cannula Nasal Cannula O2 Flow Rate 2.0 2.0 06/04/18 11:44 Temp 98.1 98.1 Pulse 98 Resp 20 B/P (MAP) 153/88 (109) Pulse Ox 90 O2 Delivery Room Air Intake and Output 06/03/18 06/03/18 06/04/18 15:00 23:00 07:00 Intake Total 300 ml 650 ml 1000 ml Output Total 350 ml 1100 ml Balance 300 ml 300 ml -100 ml BLANCA GUEVARA MD Jun 04, 2018 12:10
[2018-06-04] MEDS ORDERED: IOHEXOL 300 MG/ML 100ML VIAL. IV ONE (12:45)
[2018-06-04] MEDS ORDERED: CONTRAST GIVEN. MC PRN (12:45)
--- NOTE | 2018-06-04 13:17 | RAD ---
CT of the head with contrast 06/04/2018 12:42 PM Indication: LARGE MASS BEHIND RT EAR, [id number] 70ML, PRIOR SOFT TISSUE NECK SENT Comparison: CT neck, yesterday Procedure: Multidetector CT imaging of the head was performed following the administration of contrast Findings: No evidence of acute hemorrhage is identified. Note that the presence of contrast limits evaluation for acute hemorrhage. No abnormal intracranial enhancement is identified. Visualized major dural sinuses appear to be grossly patent. No abnormal extra-axial collections are identified. No evidence of acute osseous abnormality is seen. No erosive bony changes are seen. The mastoid air cells are clear. There is less paranasal sinuses are unremarkable. Postsurgical change left globe noted. There is abnormal soft tissue stranding and enhancement involving the posterior superior right neck and in and posterior inferior right scalp. Thickening of the subcutaneous tissues is noted. There is also thickening of the posterior aspect of the right sternocleidomastoid mastoid muscle. Small adjacent lymph nodes are noted. Findings again most consistent with cellulitis with probably a component of myositis involving the sternocleidomastoid muscle. Focal abscess is not seen. IMPRESSION: 1. No acute intracranial abnormality is seen 2. Subcutaneous fat stranding and enhancement involving the posterior right neck and scalp as described. Findings suggest cellulitis with component of myositis. CT DOSING PQRS STATEMENT: One or more of the following individualized dose reduction techniques were utilized for this examination: 1. Automated exposure control 2. Adjustment of the mA and/or kV according to patient size 3. Use of iterative reconstruction technique Electronically signed by: Vishnu Stark MD (06/04/2018 1:14 PM) [id number]
[2018-06-04] MEDS: HYDROcodone/APAP 5/325MG 1 TAB TABLET PO PRN ×2 (14:38→21:58)
[2018-06-04] MEDS: LACTOBACILLUS RHAMNOSUS GG 1 CAPSULE. PO SCH (21:57)
[2018-06-04] MEDS: KETOROLAC 30 MG/ML VIAL. IV PRN (21:58)
[2018-06-04] MEDS: ENOXAPARIN 40 MG/0.4 ML SYRINGE. SQ SCH (21:58)
[2018-06-05 03:00] VITALS: BP 139/87
[2018-06-05] MEDS: VANCOMYCIN 1.5 GM in IV NORMAL SALINE 500ML BAG 500 ML IV SCH (04:22)
[2018-06-05] MEDS: MEROPENEM 500 MG in IV NORMAL SALINE 50ML 50 ML IV SCH (06:28)
[2018-06-05 07:00] VITALS: BP 154/87
[2018-06-05] MEDS: LACTOBACILLUS RHAMNOSUS GG 1 CAPSULE. PO SCH ×2 (08:51→20:37)
[2018-06-05] MEDS: LINEZOLID 600 MG TABLET PO SCH ×2 (08:51→20:37)
[2018-06-05 08:52] LABS: BASO # 0.1 x10^3/uL (0.0-0.2); BASO % 1 % (0-3); EOS # 0.3 x10^3/uL (0.0-0.7); EOS % 3 % (0-3); HEMATOCRIT 43.9 % (39.0-53.0); HEMOGLOBIN 14.7 g/dL (13.0-17.5); LYMPH # 1.5 x10^3/uL (1.0-4.8); LYMPH % 14 % (24-48); MEAN CORPUSCULAR HEMOGLOBIN 30 pg (25-35); MEAN CORPUSCULAR HGB CONC 33 g/dL (31-37); MEAN CORPUSCULAR VOLUME 89 fL (79-100); MONO # 0.9 x10^3/uL (0.0-1.1); MONO % 8 % (0-9); NEUT # 8.3 x10^3uL (1.8-7.7); NEUT % 75 % (31-73); PLATELET COUNT 176 x10^3/uL (140-400); RED BLOOD COUNT 4.94 x10^6/uL (4.30-5.70); RED CELL DISTRIBUTION WIDTH 14.4 % (11.5-14.5); WHITE BLOOD COUNT 11.1 x10^3/uL (4.0-11.0)
[2018-06-05] MEDS: HYDROcodone/APAP 5/325MG 1 TAB TABLET PO PRN ×3 (08:56→20:38)
[2018-06-05 09:13] LABS: ALBUMIN 2.5 g/dL (3.4-5.0); ALBUMIN/GLOBULIN RATIO 0.6 (1.0-1.7); CALCIUM 8.3 mg/dL (8.5-10.1); CREATININE 0.9 mg/dL (0.7-1.3); POTASSIUM 3.7 mmol/L (3.5-5.1); TOTAL BILIRUBIN 0.7 mg/dL (0.2-1.0); TOTAL PROTEIN 6.4 g/dL (6.4-8.2)
[2018-06-05 11:00] VITALS: BP 141/91
--- NOTE | 2018-06-05 11:00 | PDOC ---
Infectious Disease Note Subjective: Subjective Pt says feels better Rt scalp and neck pain and swelling ,slightly improved no fever ,chills, headache, n/v/sob/chestpain RT hand finger swelling and redness is improving though slowly ROS: ROS Negative except for above. Vital Signs: Vital Signs Vital Signs Date Time Temp Pulse Resp B/P (MAP) Pulse Ox O2 Delivery O2 Flow Rate FiO2 06/05/18 10:48 94 Room Air 2.0 06/05/18 07:00 97.7 54 18 154/87 (109) 97.7 Physical Exam: PHYSICAL EXAM GENERAL: Well-developed, well-nourished male in no acute distress, lying comfortably in bed. HEENT: Normocephalic, atraumatic. Left eye, unable to open completely. Right eye, pupils equal, reactive. Extraocular movements intact. Oral mucosa moist. No thrush. Dentition poor. No oral exudates.Rt scalp swelling and pain, no fluctuance NECK: Supple. Right-sided swelling, redness, tenderness to palpation. No underlying fluctuance. LUNGS: Clear bilaterally. HEART: S1, S2. ABDOMEN: Soft, obese. Bowel sounds present. EXTREMITIES: No edema, no cyanosis. Had multiple superficial lesions, 2 over the left lower extremity, 1 over the chin, 1 over the right sikhism area without evidence of purulence or underlying fluctuance. Right third finger swelling with superficial skin breakdown. Decreased range of motion, tenderness, no purulence. NEUROLOGIC: Alert and oriented x 3. Grossly nonfocal. PSYCHIATRIC: Appropriate mood and affect. DERMATOLOGIC: No generalized rash except for above. MUSCULOSKELETAL: No decrease in range of motion except for restriction at the neck due to pain on the right side. NECK: . Right-sided swelling, redness, tenderness to palpation. No underlying fluctuance. Medications: Inpatient Meds: Current Medications Medications (Trade) Dose Ordered Sig/Kole Start Time Stop Time Status Last Admin Dose Admin Acetaminophen/ Hydrocodone Bitart (Lortab 5/325) 1 tab PRN Q4HRS PRN 06/04/18 12:45 06/05/18 08:56 1 TAB Dobutamine HCl/ Dextrose 250 ml @ 0 mls/hr CONT PRN 06/02/18 19:15 UNV Enoxaparin Sodium (Lovenox 40mg Syringe) 40 mg Q24H 06/02/18 21:00 06/04/18 21:58 40 MG Info (CONTRAST GIVEN -- Rx MONITORING) 1 each PRN DAILY PRN 06/04/18 12:45 06/06/18 12:44 Iohexol (Omnipaque 300 Mg/ml) 70 ml 1X ONCE 06/04/18 12:45 06/04/18 12:46 DC 06/04/18 12:52 70 ML Ketorolac Tromethamine (Toradol 30mg Vial) 30 mg PRN Q6HRS PRN 06/03/18 02:30 06/08/18 02:29 06/04/18 21:58 30 MG Lactobacillus Rhamnosus (Culturelle) 1 cap BID 06/04/18 21:00 06/05/18 08:51 1 CAP Levofloxacin/ Dextrose 150 ml @ 100 mls/hr Q24H 06/02/18 19:15 06/07/18 19:14 UNV Linezolid (Zyvox) 600 mg BID 06/03/18 11:00 06/05/18 08:51 600 MG Linezolid/Dextrose 300 ml @ 300 mls/hr Q12HR 06/02/18 21:00 UNV Meropenem 500 mg/ Sodium Chloride 50 ml @ 100 mls/hr Q8H 06/02/18 17:00 06/05/18 06:28 100 MLS/HR Morphine Sulfate (Morphine Sulfate) 2 mg PRN Q2HR PRN 06/03/18 14:00 06/03/18 17:34 2 MG Norepinephrine Bitartrate 250 ml @ 0 mls/hr CONT PRN 06/02/18 19:15 UNV Ondansetron HCl (Zofran) 4 mg PRN Q8HRS PRN 06/02/18 16:45 06/03/18 16:44 DC Potassium Chloride (Klor-Con) 40 meq 1X ONCE 06/02/18 19:30 06/02/18 19:31 DC 06/02/18 20:38 40 MEQ Sodium Chloride 500 ml @ 1,000 mls/hr PRN Q30MIN PRN 06/02/18 19:15 Vancomycin HCl (Vanco Per Pharmacy) 1 each PRN DAILY PRN 06/02/18 19:15 UNV Vancomycin HCl (Vancomycin Trough Level) 1 each 1X ONCE 06/04/18 03:30 06/04/18 03:31 DC 06/04/18 03:30 1 EACH Vancomycin HCl 1.5 gm/Sodium Chloride 500 ml @ 250 mls/hr Q12H 06/03/18 04:00 06/05/18 04:22 250 MLS/HR Vancomycin HCl 2 gm/Sodium Chloride 500 ml @ 250 mls/hr 1X ONCE 06/02/18 16:00 06/02/18 17:59 DC 06/02/18 15:49 250 MLS/HR Labs: Lab Laboratory Tests Test 06/04/18 14:15 06/05/18 08:25 Erythrocyte Sedimentation Rate 14 (0-15) White Blood Count 11.1 x10^3/uL (4.0-11.0) Red Blood Count 4.94 x10^6/uL (4.30-5.70) Hemoglobin 14.7 g/dL (13.0-17.5) Hematocrit 43.9 % (39.0-53.0) Mean Corpuscular Volume 89 fL (79-100) Mean Corpuscular Hemoglobin 30 pg (25-35) Mean Corpuscular Hemoglobin Concent 33 g/dL (31-37) Red Cell Distribution Width 14.4 % (11.5-14.5) Platelet Count 176 x10^3/uL (140-400) Neutrophils (%) (Auto) 75 % (31-73) Lymphocytes (%) (Auto) 14 % (24-48) Monocytes (%) (Auto) 8 % (0-9) Eosinophils (%) (Auto) 3 % (0-3) Basophils (%) (Auto) 1 % (0-3) Neutrophils # (Auto) 8.3 x10^3uL (1.8-7.7) Lymphocytes # (Auto) 1.5 x10^3/uL (1.0-4.8) Monocytes # (Auto) 0.9 x10^3/uL (0.0-1.1) Eosinophils # (Auto) 0.3 x10^3/uL (0.0-0.7) Basophils # (Auto) 0.1 x10^3/uL (0.0-0.2) Sodium Level 141 mmol/L (136-145) Potassium Level 3.7 mmol/L (3.5-5.1) Chloride Level 106 mmol/L (98-107) Carbon Dioxide Level 26 mmol/L (21-32) Anion Gap 9 (6-14) Blood Urea Nitrogen 7 mg/dL (8-26) Creatinine 0.9 mg/dL (0.7-1.3) Estimated GFR (Cockcroft-Gault) 87.0 BUN/Creatinine Ratio 8 (6-20) Glucose Level 143 mg/dL (70-99) Calcium Level 8.3 mg/dL (8.5-10.1) Total Bilirubin 0.7 mg/dL (0.2-1.0) Aspartate Amino Transf (AST/SGOT) 24 U/L (15-37) Alanine Aminotransferase (ALT/SGPT) 36 U/L (16-63) Alkaline Phosphatase 120 U/L (46-116) Total Protein 6.4 g/dL (6.4-8.2) Albumin 2.5 g/dL (3.4-5.0) Albumin/Globulin Ratio 0.6 (1.0-1.7) Objective: Assessment: 1. Sepsis from Soft tissue infection, rt scalp and posterior right neck. No evidence of fluctuance at this time. 2. Fever and leukocytosis.Improving 3. Lactic acidosis.resolving 4. History of dermatitis affecting left lower extremity, right sikhism and chin. No evidence of fluctuance or purulence at this time. 5. Right hand 4th finger abrasion without evidence of purulence at this time. Plan: Plan of Care DC IV vancomycin, meropenem Start Zosyn , cont Zyvox. Local wound care. Monitor labs in a.m. and blood cultures. Continue supportive care. d/w friend at bedside SANJANA ELENA MD Jun 05, 2018 11:00
--- NOTE | 2018-06-05 11:46 | PDOC ---
PROGRESS NOTES Chief Complaint Chief Complaint Right neck cellulitis Fever Leucocytosis Lactic acidosis Rt 4th finger abrasion with swelling Scattered skin lesions in LLE,Rt [place] and chin History of Present Illness History of Present Illness Mr. Mendez is a 70 y/o male who has R neck cellulitis currently on IV antibiotics. ID is following. He is taking SQ lovenox for DVT prophylaxis. Consulting general surgery for possible R neck abscess. Pt is complaining of pain from his right neck cellulitis. It is diffusely TTP. PO lortab, or IV morphine for pain. Pt seen and examined. Pt alert and oriented; affect appropriate VSS DW nursing Vitals Vitals Vital Signs Date Time Temp Pulse Resp B/P (MAP) Pulse Ox O2 Delivery O2 Flow Rate FiO2 06/05/18 10:48 94 Room Air 2.0 06/05/18 07:00 97.7 54 18 154/87 (109) 97.7 Physical Exam General: Alert, Oriented X3, Cooperative, mild distress Heart: Regular rate, Normal S1, No murmurs Lungs: Clear Abdomen: Normal bowel sounds, Soft, No tenderness Extremities: No clubbing, No cyanosis, No edema, Other (R neck cellulitis; possible abscess?) Labs LABS Laboratory Tests Test 06/04/18 14:15 06/05/18 08:25 Erythrocyte Sedimentation Rate 14 (0-15) White Blood Count 11.1 x10^3/uL (4.0-11.0) Red Blood Count 4.94 x10^6/uL (4.30-5.70) Hemoglobin 14.7 g/dL (13.0-17.5) Hematocrit 43.9 % (39.0-53.0) Mean Corpuscular Volume 89 fL (79-100) Mean Corpuscular Hemoglobin 30 pg (25-35) Mean Corpuscular Hemoglobin Concent 33 g/dL (31-37) Red Cell Distribution Width 14.4 % (11.5-14.5) Platelet Count 176 x10^3/uL (140-400) Neutrophils (%) (Auto) 75 % (31-73) Lymphocytes (%) (Auto) 14 % (24-48) Monocytes (%) (Auto) 8 % (0-9) Eosinophils (%) (Auto) 3 % (0-3) Basophils (%) (Auto) 1 % (0-3) Neutrophils # (Auto) 8.3 x10^3uL (1.8-7.7) Lymphocytes # (Auto) 1.5 x10^3/uL (1.0-4.8) Monocytes # (Auto) 0.9 x10^3/uL (0.0-1.1) Eosinophils # (Auto) 0.3 x10^3/uL (0.0-0.7) Basophils # (Auto) 0.1 x10^3/uL (0.0-0.2) Sodium Level 141 mmol/L (136-145) Potassium Level 3.7 mmol/L (3.5-5.1) Chloride Level 106 mmol/L (98-107) Carbon Dioxide Level 26 mmol/L (21-32) Anion Gap 9 (6-14) Blood Urea Nitrogen 7 mg/dL (8-26) Creatinine 0.9 mg/dL (0.7-1.3) Estimated GFR (Cockcroft-Gault) 87.0 BUN/Creatinine Ratio 8 (6-20) Glucose Level 143 mg/dL (70-99) Calcium Level 8.3 mg/dL (8.5-10.1) Total Bilirubin 0.7 mg/dL (0.2-1.0) Aspartate Amino Transf (AST/SGOT) 24 U/L (15-37) Alanine Aminotransferase (ALT/SGPT) 36 U/L (16-63) Alkaline Phosphatase 120 U/L (46-116) Total Protein 6.4 g/dL (6.4-8.2) Albumin 2.5 g/dL (3.4-5.0) Albumin/Globulin Ratio 0.6 (1.0-1.7) Review of Systems Review of Systems Pt endorses 4/10 neck pain stemming from cellulitis. Pt denies any SOA or angina. Assessment and Plan Assessmemt and Plan Problems Medical Problems: (1) Cellulitis of neck Status: Acute (2) Cellulitis of scalp Status: Acute Assessment: Right neck cellulitis Fever Leucocytosis Lactic acidosis Rt 4th finger abrasion with swelling Scattered skin lesions in LLE,Rt [place] and chin Plan: Consult general surgery regarding possible R neck abscess; appreciate input F/u ID; appreciate input PRN narcotics for pain Home medications Labs Comment Review of Relevant I have reviewed the following items nhan (where applicable) has been applied. Labs Laboratory Tests Test 06/04/18 03:20 06/04/18 14:15 06/05/18 08:25 White Blood Count 12.6 x10^3/uL (4.0-11.0) 11.1 x10^3/uL (4.0-11.0) Red Blood Count 4.77 x10^6/uL (4.30-5.70) 4.94 x10^6/uL (4.30-5.70) Hemoglobin 14.4 g/dL (13.0-17.5) 14.7 g/dL (13.0-17.5) Hematocrit 43.1 % (39.0-53.0) 43.9 % (39.0-53.0) Mean Corpuscular Volume 90 fL (79-100) 89 fL (79-100) Mean Corpuscular Hemoglobin 30 pg (25-35) 30 pg (25-35) Mean Corpuscular Hemoglobin Concent 33 g/dL (31-37) 33 g/dL (31-37) Red Cell Distribution Width 15.1 % (11.5-14.5) 14.4 % (11.5-14.5) Platelet Count 179 x10^3/uL (140-400) 176 x10^3/uL (140-400) Neutrophils (%) (Auto) 79 % (31-73) 75 % (31-73) Lymphocytes (%) (Auto) 10 % (24-48) 14 % (24-48) Monocytes (%) (Auto) 8 % (0-9) 8 % (0-9) Eosinophils (%) (Auto) 2 % (0-3) 3 % (0-3) Basophils (%) (Auto) 1 % (0-3) 1 % (0-3) Neutrophils # (Auto) 10.0 x10^3uL (1.8-7.7) 8.3 x10^3uL (1.8-7.7) Lymphocytes # (Auto) 1.3 x10^3/uL (1.0-4.8) 1.5 x10^3/uL (1.0-4.8) Monocytes # (Auto) 1.0 x10^3/uL (0.0-1.1) 0.9 x10^3/uL (0.0-1.1) Eosinophils # (Auto) 0.3 x10^3/uL (0.0-0.7) 0.3 x10^3/uL (0.0-0.7) Basophils # (Auto) 0.1 x10^3/uL (0.0-0.2) 0.1 x10^3/uL (0.0-0.2) Sodium Level 141 mmol/L (136-145) 141 mmol/L (136-145) Potassium Level 4.0 mmol/L (3.5-5.1) 3.7 mmol/L (3.5-5.1) Chloride Level 106 mmol/L (98-107) 106 mmol/L (98-107) Carbon Dioxide Level 24 mmol/L (21-32) 26 mmol/L (21-32) Anion Gap 11 (6-14) 9 (6-14) Blood Urea Nitrogen 9 mg/dL (8-26) 7 mg/dL (8-26) Creatinine 0.9 mg/dL (0.7-1.3) 0.9 mg/dL (0.7-1.3) Estimated GFR (Cockcroft-Gault) 87.0 87.0 Glucose Level 123 mg/dL (70-99) 143 mg/dL (70-99) Calcium Level 8.0 mg/dL (8.5-10.1) 8.3 mg/dL (8.5-10.1) Vancomycin Level Trough 13.5 mcg/mL (10.0-20.0) Vancomycin Last Dose Date 06/03/18 Vancomycin Last Dose Time 1600 Erythrocyte Sedimentation Rate 14 (0-15) BUN/Creatinine Ratio 8 (6-20) Total Bilirubin 0.7 mg/dL (0.2-1.0) Aspartate Amino Transf (AST/SGOT) 24 U/L (15-37) Alanine Aminotransferase (ALT/SGPT) 36 U/L (16-63) Alkaline Phosphatase 120 U/L (46-116) Total Protein 6.4 g/dL (6.4-8.2) Albumin 2.5 g/dL (3.4-5.0) Albumin/Globulin Ratio 0.6 (1.0-1.7) Laboratory Tests Test 06/04/18 14:15 06/05/18 08:25 Erythrocyte Sedimentation Rate 14 (0-15) White Blood Count 11.1 x10^3/uL (4.0-11.0) Red Blood Count 4.94 x10^6/uL (4.30-5.70) Hemoglobin 14.7 g/dL (13.0-17.5) Hematocrit 43.9 % (39.0-53.0) Mean Corpuscular Volume 89 fL (79-100) Mean Corpuscular Hemoglobin 30 pg (25-35) Mean Corpuscular Hemoglobin Concent 33 g/dL (31-37) Red Cell Distribution Width 14.4 % (11.5-14.5) Platelet Count 176 x10^3/uL (140-400) Neutrophils (%) (Auto) 75 % (31-73) Lymphocytes (%) (Auto) 14 % (24-48) Monocytes (%) (Auto) 8 % (0-9) Eosinophils (%) (Auto) 3 % (0-3) Basophils (%) (Auto) 1 % (0-3) Neutrophils # (Auto) 8.3 x10^3uL (1.8-7.7) Lymphocytes # (Auto) 1.5 x10^3/uL (1.0-4.8) Monocytes # (Auto) 0.9 x10^3/uL (0.0-1.1) Eosinophils # (Auto) 0.3 x10^3/uL (0.0-0.7) Basophils # (Auto) 0.1 x10^3/uL (0.0-0.2) Sodium Level 141 mmol/L (136-145) Potassium Level 3.7 mmol/L (3.5-5.1) Chloride Level 106 mmol/L (98-107) Carbon Dioxide Level 26 mmol/L (21-32) Anion Gap 9 (6-14) Blood Urea Nitrogen 7 mg/dL (8-26) Creatinine 0.9 mg/dL (0.7-1.3) Estimated GFR (Cockcroft-Gault) 87.0 BUN/Creatinine Ratio 8 (6-20) Glucose Level 143 mg/dL (70-99) Calcium Level 8.3 mg/dL (8.5-10.1) Total Bilirubin 0.7 mg/dL (0.2-1.0) Aspartate Amino Transf (AST/SGOT) 24 U/L (15-37) Alanine Aminotransferase (ALT/SGPT) 36 U/L (16-63) Alkaline Phosphatase 120 U/L (46-116) Total Protein 6.4 g/dL (6.4-8.2) Albumin 2.5 g/dL (3.4-5.0) Albumin/Globulin Ratio 0.6 (1.0-1.7) Microbiology 06/02/18 Blood Culture - Preliminary, Resulted NO GROWTH AFTER 2 DAYS Medications Current Medications Morphine Sulfate (Morphine Sulfate) 4 mg 1X ONCE IV Last administered on at 14:34; Start 06/02/18 at 14:15; Stop 06/02/18 at 14:16; Status DC Ondansetron HCl (Zofran) 4 mg 1X ONCE IV Last administered on 06/02/18at 14:35 ; Start 06/02/18 at 14:15; Stop 06/02/18 at 14:16; Status DC Sodium Chloride 1,000 ml @ 1,000 mls/hr 1X ONCE IV Last administered on at 14:33; Start 06/02/18 at 14:15; Stop 06/02/18 at 15:14; Status DC Iohexol (Omnipaque 300 Mg/ml) 75 ml 1X ONCE IV Last administered on 06/02/18at 15:13; Start 06/02/18 at 14:45; Stop 06/02/18 at 14:46; Status DC Sodium Chloride 1,000 ml @ 1,000 mls/hr 1X ONCE IV Last administered on at 17:00; Start 06/02/18 at 15:30; Stop 06/02/18 at 16:29; Status DC Vancomycin HCl (Vanco Per Pharmacy) 1 each PRN DAILY PRN MC SEE COMMENTS Last administered on 06/04/18at 04:51; Start 06/02/18 at 15:30; Stop 06/05/18 at 11: 39; Status DC Vancomycin HCl 2 gm/Sodium Chloride 500 ml @ 250 mls/hr 1X ONCE IV Last administered on 06/02/18at 15:49; Start 06/02/18 at 16:00; Stop 06/02/18 at 17:59 ; Status DC Ondansetron HCl (Zofran) 4 mg PRN Q8HRS PRN IV NAUSEA/VOMITING; Start 06/02/18 at 16:45; Stop 06/03/18 at 16:44; Status DC Morphine Sulfate (Morphine Sulfate) 2 mg PRN Q2HR PRN IV PAIN Last administered on 06/03/18at 01:32; Start 06/02/18 at 16:45; Stop 06/03/18 at 14: 04; Status DC Sodium Chloride 1,000 ml @ 150 mls/hr Q6H40M IV Last administered on at 03:50; Start 06/02/18 at 16:41; Stop 06/03/18 at 16:40; Status DC Meropenem 500 mg/ Sodium Chloride 50 ml @ 100 mls/hr Q8H IV Last administered on 06/05/18at 06:28; Start 06/02/18 at 17:00; Stop 06/05/18 at 11:37; Status DC Vancomycin HCl 1.5 gm/Sodium Chloride 500 ml @ 250 mls/hr Q12H IV Last administered on 06/05/18at 04:22; Start 06/03/18 at 04:00; Stop 06/05/18 at 11 :37; Status DC Vancomycin HCl (Vancomycin Trough Level) 1 each 1X ONCE MC Last administered on 06/04/18at 03:30; Start 06/04/18 at 03:30; Stop 06/04/18 at 03:31; Status DC Enoxaparin Sodium (Lovenox 40mg Syringe) 40 mg Q24H SQ Last administered on 07/12at 21:58; Start 06/02/18 at 21:00 Potassium Chloride (Klor-Con) 40 meq 1X ONCE PO Last administered on at 20:38; Start 06/02/18 at 19:30; Stop 06/02/18 at 19:31; Status DC Sodium Chloride 1,000 ml @ 2,130 mls/hr Q29M IV Last administered on at 20:37; Start 06/02/18 at 19:05; Stop 06/02/18 at 20:05; Status DC Sodium Chloride 500 ml @ 1,000 mls/hr PRN Q30MIN PRN IV SEE COMMENTS; Start 06/02/18 at 19:15 Levofloxacin/ Dextrose 150 ml @ 100 mls/hr Q24H IV ; Start 06/02/18 at 19:15; Stop 06/07/18 at 19:14; Status UNV Vancomycin HCl (Vanco Per Pharmacy) 1 each PRN DAILY PRN MC SEE COMMENTS; Start 06/02/18 at 19:15; Status UNV Linezolid/Dextrose 300 ml @ 300 mls/hr Q12HR IV ; Start 06/02/18 at 21:00; Status UNV Norepinephrine Bitartrate 250 ml @ 0 mls/hr CONT PRN IV SEE I/O RECORD; Start 06/02/18 at 19:15; Status UNV Dobutamine HCl/ Dextrose 250 ml @ 0 mls/hr CONT PRN IV SEE I/O RECORD; Start 06/02/18 at 19:15; Status UNV Ketorolac Tromethamine (Toradol 30mg Vial) 30 mg PRN Q6HRS PRN IV PAIN Last administered on 06/04/18at 21:58; Start 06/03/18 at 02:30; Stop 06/08/18 at 02 :29 Morphine Sulfate (Morphine Sulfate) 4 mg PRN Q2HR PRN IV PAIN Last administered on 06/03/18at 08:20; Start 06/03/18 at 02:30; Stop 06/03/18 at 14 :05; Status DC Linezolid (Zyvox) 600 mg BID PO Last administered on 06/05/18at 08:51; Start 06/03/18 at 11:00 Morphine Sulfate (Morphine Sulfate) 2 mg PRN Q2HR PRN IV MODERATE PAIN Last administered on 06/03/18at 17:34; Start 06/03/18 at 14:00 Iohexol (Omnipaque 300 Mg/ml) 70 ml 1X ONCE IV Last administered on at 12:52; Start 06/04/18 at 12:45; Stop 06/04/18 at 12:46; Status DC Info (CONTRAST GIVEN -- Rx MONITORING) 1 each PRN DAILY PRN MC SEE COMMENTS; Start 06/04/18 at 12:45; Stop 06/06/18 at 12:44 Acetaminophen/ Hydrocodone Bitart (Lortab 5/325) 1 tab PRN Q4HRS PRN PO MODERATE PAIN Last administered on 06/05/18at 08:56; Start 06/04/18 at 12:45 Lactobacillus Rhamnosus (Culturelle) 1 cap BID PO Last administered on at 08:51; Start 06/04/18 at 21:00 Piperacillin Sod/ Tazobactam Sod 3.375 gm/Sodium Chloride 50 ml @ 100 mls/hr Q6HRS IV ; Start 06/05/18 at 12:00 Vitals/I & O Vital Sign - Last 24 Hours 06/04/18 06/04/18 06/04/18 06/04/18 11:44 14:38 15:00 19:00 Temp 98.1 97.9 97.9 98.1 97.9 97.9 Pulse 98 62 58 Resp 20 16 20 B/P (MAP) 153/88 (109) 159/87 (111) 152/80 (104) Pulse Ox 90 95 98 O2 Delivery Room Air Room Air Room Air Room Air 06/04/18 06/05/18 06/05/18 06/05/18 23:00 03:00 07:00 08:00 Temp 98.2 98.2 97.7 98.2 98.2 97.7 Pulse 65 67 54 Resp 20 18 18 B/P (MAP) 165/65 (98) 139/87 (104) 154/87 (109) Pulse Ox 95 95 94 O2 Delivery Room Air Room Air Room Air Room Air O2 Flow Rate 2.0 2.0 06/05/18 06/05/18 08:56 10:48 Pulse Ox 94 O2 Delivery Nasal Cannula Room Air O2 Flow Rate 2.0 Intake and Output 06/04/18 06/04/18 06/05/18 15:00 23:00 07:00 Intake Total 237 ml 790 ml Balance 237 ml 790 ml BRENTON MENDEZ III DO Jun 05, 2018 11:46
[2018-06-05] MEDS: PIPERACILLIN/TAZOBACTAM 3.375 GM in IV NORMAL SALINE 50ML 50 ML IV SCH ×3 (13:02→23:33)
--- NOTE | 2018-06-05 13:26 | PDOC2 ---
CONSULT Date of Consult Date of Consult DATE: 06/05/18 TIME: 13:20 Reason for Consult Reason for Consult: right posterior neck cellulitis Referring Physician Referring Physician: Dr Mcmanus Identification/Chief Complaint Chief Complaint right neck pain Source Source: Chart review, Patient History of Present Illness Reason for Visit: Mr Mcmanus iw a 58 yo gentleman admitted three days ago with severe pain, erythema, warmth and TTP in the posterior right neck, up into his scalp and behind his right ear. No similar previous episodes. Past Medical History Musculoskeletal: Osteoarthritis Rheumatologic: No pertinent hx ENT: No pertinent hx Renal/: No pertinent hx Dermatology: Rash Past Surgical History Past Surgical History: Appendectomy, No pertinent history Family History Family History: Hypertension Social History <1 pack per day ALCOHOL: none Drugs: None Current Problem List Problem List Problems Medical Problems: (1) Cellulitis of neck Status: Acute (2) Cellulitis of scalp Status: Acute Current Medications Current Medications Current Medications Morphine Sulfate (Morphine Sulfate) 4 mg 1X ONCE IV Last administered on at 14:34; Start 06/02/18 at 14:15; Stop 06/02/18 at 14:16; Status DC Ondansetron HCl (Zofran) 4 mg 1X ONCE IV Last administered on 06/02/18at 14:35 ; Start 06/02/18 at 14:15; Stop 06/02/18 at 14:16; Status DC Sodium Chloride 1,000 ml @ 1,000 mls/hr 1X ONCE IV Last administered on at 14:33; Start 06/02/18 at 14:15; Stop 06/02/18 at 15:14; Status DC Iohexol (Omnipaque 300 Mg/ml) 75 ml 1X ONCE IV Last administered on 06/02/18at 15:13; Start 06/02/18 at 14:45; Stop 06/02/18 at 14:46; Status DC Sodium Chloride 1,000 ml @ 1,000 mls/hr 1X ONCE IV Last administered on at 17:00; Start 06/02/18 at 15:30; Stop 06/02/18 at 16:29; Status DC Vancomycin HCl (Vanco Per Pharmacy) 1 each PRN DAILY PRN MC SEE COMMENTS Last administered on 06/04/18at 04:51; Start 06/02/18 at 15:30; Stop 06/05/18 at 11: 39; Status DC Vancomycin HCl 2 gm/Sodium Chloride 500 ml @ 250 mls/hr 1X ONCE IV Last administered on 06/02/18at 15:49; Start 06/02/18 at 16:00; Stop 06/02/18 at 17:59 ; Status DC Ondansetron HCl (Zofran) 4 mg PRN Q8HRS PRN IV NAUSEA/VOMITING; Start 06/02/18 at 16:45; Stop 06/03/18 at 16:44; Status DC Morphine Sulfate (Morphine Sulfate) 2 mg PRN Q2HR PRN IV PAIN Last administered on 06/03/18at 01:32; Start 06/02/18 at 16:45; Stop 06/03/18 at 14: 04; Status DC Sodium Chloride 1,000 ml @ 150 mls/hr Q6H40M IV Last administered on at 03:50; Start 06/02/18 at 16:41; Stop 06/03/18 at 16:40; Status DC Meropenem 500 mg/ Sodium Chloride 50 ml @ 100 mls/hr Q8H IV Last administered on 06/05/18at 06:28; Start 06/02/18 at 17:00; Stop 06/05/18 at 11:37; Status DC Vancomycin HCl 1.5 gm/Sodium Chloride 500 ml @ 250 mls/hr Q12H IV Last administered on 06/05/18at 04:22; Start 06/03/18 at 04:00; Stop 06/05/18 at 11 :37; Status DC Vancomycin HCl (Vancomycin Trough Level) 1 each 1X ONCE MC Last administered on 06/04/18at 03:30; Start 06/04/18 at 03:30; Stop 06/04/18 at 03:31; Status DC Enoxaparin Sodium (Lovenox 40mg Syringe) 40 mg Q24H SQ Last administered on 07/12at 21:58; Start 06/02/18 at 21:00 Potassium Chloride (Klor-Con) 40 meq 1X ONCE PO Last administered on at 20:38; Start 06/02/18 at 19:30; Stop 06/02/18 at 19:31; Status DC Sodium Chloride 1,000 ml @ 2,130 mls/hr Q29M IV Last administered on at 20:37; Start 06/02/18 at 19:05; Stop 06/02/18 at 20:05; Status DC Sodium Chloride 500 ml @ 1,000 mls/hr PRN Q30MIN PRN IV SEE COMMENTS; Start 06/02/18 at 19:15 Levofloxacin/ Dextrose 150 ml @ 100 mls/hr Q24H IV ; Start 06/02/18 at 19:15; Stop 06/07/18 at 19:14; Status UNV Vancomycin HCl (Vanco Per Pharmacy) 1 each PRN DAILY PRN MC SEE COMMENTS; Start 06/02/18 at 19:15; Status UNV Linezolid/Dextrose 300 ml @ 300 mls/hr Q12HR IV ; Start 06/02/18 at 21:00; Status UNV Norepinephrine Bitartrate 250 ml @ 0 mls/hr CONT PRN IV SEE I/O RECORD; Start 06/02/18 at 19:15; Status UNV Dobutamine HCl/ Dextrose 250 ml @ 0 mls/hr CONT PRN IV SEE I/O RECORD; Start 06/02/18 at 19:15; Status UNV Ketorolac Tromethamine (Toradol 30mg Vial) 30 mg PRN Q6HRS PRN IV PAIN Last administered on 06/04/18at 21:58; Start 06/03/18 at 02:30; Stop 06/08/18 at 02 :29 Morphine Sulfate (Morphine Sulfate) 4 mg PRN Q2HR PRN IV PAIN Last administered on 06/03/18at 08:20; Start 06/03/18 at 02:30; Stop 06/03/18 at 14 :05; Status DC Linezolid (Zyvox) 600 mg BID PO Last administered on 06/05/18at 08:51; Start 06/03/18 at 11:00 Morphine Sulfate (Morphine Sulfate) 2 mg PRN Q2HR PRN IV MODERATE PAIN Last administered on 06/03/18at 17:34; Start 06/03/18 at 14:00 Iohexol (Omnipaque 300 Mg/ml) 70 ml 1X ONCE IV Last administered on at 12:52; Start 06/04/18 at 12:45; Stop 06/04/18 at 12:46; Status DC Info (CONTRAST GIVEN -- Rx MONITORING) 1 each PRN DAILY PRN MC SEE COMMENTS; Start 06/04/18 at 12:45; Stop 06/06/18 at 12:44 Acetaminophen/ Hydrocodone Bitart (Lortab 5/325) 1 tab PRN Q4HRS PRN PO MODERATE PAIN Last administered on 06/05/18at 08:56; Start 06/04/18 at 12:45 Lactobacillus Rhamnosus (Culturelle) 1 cap BID PO Last administered on at 08:51; Start 06/04/18 at 21:00 Piperacillin Sod/ Tazobactam Sod 3.375 gm/Sodium Chloride 50 ml @ 100 mls/hr Q6HRS IV Last administered on 06/05/18at 13:02; Start 06/05/18 at 12:00 Allergies Allergies: Coded Allergies: No Known Drug Allergies (Unverified , 01/07/16) ROS General: YES: Chills HEENT: YES: Other (pain posterior neck on the right) Physical Exam General: Alert, Oriented X3, Other (uncomfortable 2/2 right neck pain, has his street clothes on) HEENT: Other (redness,warmth, induration and TTP right posterior neck) Lungs: Normal air movement Heart: Regular rate Abdomen: Soft Skin: Other (warm, dry) Vitals VITALS Vital Signs Date Time Temp Pulse Resp B/P (MAP) Pulse Ox O2 Delivery O2 Flow Rate FiO2 06/05/18 11:00 97.9 58 20 141/91 (108) 93 Room Air 97.9 06/05/18 10:48 2.0 Labs Labs Laboratory Tests Test 06/04/18 03:20 06/04/18 14:15 06/05/18 08:25 White Blood Count 12.6 x10^3/uL (4.0-11.0) 11.1 x10^3/uL (4.0-11.0) Red Blood Count 4.77 x10^6/uL (4.30-5.70) 4.94 x10^6/uL (4.30-5.70) Hemoglobin 14.4 g/dL (13.0-17.5) 14.7 g/dL (13.0-17.5) Hematocrit 43.1 % (39.0-53.0) 43.9 % (39.0-53.0) Mean Corpuscular Volume 90 fL (79-100) 89 fL (79-100) Mean Corpuscular Hemoglobin 30 pg (25-35) 30 pg (25-35) Mean Corpuscular Hemoglobin Concent 33 g/dL (31-37) 33 g/dL (31-37) Red Cell Distribution Width 15.1 % (11.5-14.5) 14.4 % (11.5-14.5) Platelet Count 179 x10^3/uL (140-400) 176 x10^3/uL (140-400) Neutrophils (%) (Auto) 79 % (31-73) 75 % (31-73) Lymphocytes (%) (Auto) 10 % (24-48) 14 % (24-48) Monocytes (%) (Auto) 8 % (0-9) 8 % (0-9) Eosinophils (%) (Auto) 2 % (0-3) 3 % (0-3) Basophils (%) (Auto) 1 % (0-3) 1 % (0-3) Neutrophils # (Auto) 10.0 x10^3uL (1.8-7.7) 8.3 x10^3uL (1.8-7.7) Lymphocytes # (Auto) 1.3 x10^3/uL (1.0-4.8) 1.5 x10^3/uL (1.0-4.8) Monocytes # (Auto) 1.0 x10^3/uL (0.0-1.1) 0.9 x10^3/uL (0.0-1.1) Eosinophils # (Auto) 0.3 x10^3/uL (0.0-0.7) 0.3 x10^3/uL (0.0-0.7) Basophils # (Auto) 0.1 x10^3/uL (0.0-0.2) 0.1 x10^3/uL (0.0-0.2) Sodium Level 141 mmol/L (136-145) 141 mmol/L (136-145) Potassium Level 4.0 mmol/L (3.5-5.1) 3.7 mmol/L (3.5-5.1) Chloride Level 106 mmol/L (98-107) 106 mmol/L (98-107) Carbon Dioxide Level 24 mmol/L (21-32) 26 mmol/L (21-32) Anion Gap 11 (6-14) 9 (6-14) Blood Urea Nitrogen 9 mg/dL (8-26) 7 mg/dL (8-26) Creatinine 0.9 mg/dL (0.7-1.3) 0.9 mg/dL (0.7-1.3) Estimated GFR (Cockcroft-Gault) 87.0 87.0 Glucose Level 123 mg/dL (70-99) 143 mg/dL (70-99) Calcium Level 8.0 mg/dL (8.5-10.1) 8.3 mg/dL (8.5-10.1) Vancomycin Level Trough 13.5 mcg/mL (10.0-20.0) Vancomycin Last Dose Date 06/03/18 Vancomycin Last Dose Time 1600 Erythrocyte Sedimentation Rate 14 (0-15) BUN/Creatinine Ratio 8 (6-20) Total Bilirubin 0.7 mg/dL (0.2-1.0) Aspartate Amino Transf (AST/SGOT) 24 U/L (15-37) Alanine Aminotransferase (ALT/SGPT) 36 U/L (16-63) Alkaline Phosphatase 120 U/L (46-116) Total Protein 6.4 g/dL (6.4-8.2) Albumin 2.5 g/dL (3.4-5.0) Albumin/Globulin Ratio 0.6 (1.0-1.7) Laboratory Tests Test 06/04/18 14:15 06/05/18 08:25 Erythrocyte Sedimentation Rate 14 (0-15) White Blood Count 11.1 x10^3/uL (4.0-11.0) Red Blood Count 4.94 x10^6/uL (4.30-5.70) Hemoglobin 14.7 g/dL (13.0-17.5) Hematocrit 43.9 % (39.0-53.0) Mean Corpuscular Volume 89 fL (79-100) Mean Corpuscular Hemoglobin 30 pg (25-35) Mean Corpuscular Hemoglobin Concent 33 g/dL (31-37) Red Cell Distribution Width 14.4 % (11.5-14.5) Platelet Count 176 x10^3/uL (140-400) Neutrophils (%) (Auto) 75 % (31-73) Lymphocytes (%) (Auto) 14 % (24-48) Monocytes (%) (Auto) 8 % (0-9) Eosinophils (%) (Auto) 3 % (0-3) Basophils (%) (Auto) 1 % (0-3) Neutrophils # (Auto) 8.3 x10^3uL (1.8-7.7) Lymphocytes # (Auto) 1.5 x10^3/uL (1.0-4.8) Monocytes # (Auto) 0.9 x10^3/uL (0.0-1.1) Eosinophils # (Auto) 0.3 x10^3/uL (0.0-0.7) Basophils # (Auto) 0.1 x10^3/uL (0.0-0.2) Sodium Level 141 mmol/L (136-145) Potassium Level 3.7 mmol/L (3.5-5.1) Chloride Level 106 mmol/L (98-107) Carbon Dioxide Level 26 mmol/L (21-32) Anion Gap 9 (6-14) Blood Urea Nitrogen 7 mg/dL (8-26) Creatinine 0.9 mg/dL (0.7-1.3) Estimated GFR (Cockcroft-Gault) 87.0 BUN/Creatinine Ratio 8 (6-20) Glucose Level 143 mg/dL (70-99) Calcium Level 8.3 mg/dL (8.5-10.1) Total Bilirubin 0.7 mg/dL (0.2-1.0) Aspartate Amino Transf (AST/SGOT) 24 U/L (15-37) Alanine Aminotransferase (ALT/SGPT) 36 U/L (16-63) Alkaline Phosphatase 120 U/L (46-116) Total Protein 6.4 g/dL (6.4-8.2) Albumin 2.5 g/dL (3.4-5.0) Albumin/Globulin Ratio 0.6 (1.0-1.7) Images Images CT scans done and admission and today are reviewed Assessment/Plan Assessment/Plan cellulitis, right posterior neck no evidence of drainable collection by CT recs: continue IV abx, obtain an ENT consult d/w Dr Mcmanus will follow Thanks for consult MEGHA MAGUIRE MD Jun 05, 2018 13:26
[2018-06-05] MEDS: NICOTINE 21MG PATCH. TD SCH (13:52)
[2018-06-05 15:00] VITALS: BP 152/80
[2018-06-05] MEDS: KETOROLAC 30 MG/ML VIAL. IV PRN ×2 (18:02→23:33)
[2018-06-05 19:00] VITALS: BP 128/68
[2018-06-05] MEDS: ENOXAPARIN 40 MG/0.4 ML SYRINGE. SQ SCH (20:39)
[2018-06-05 23:00] VITALS: BP 159/75
[2018-06-06 03:00] VITALS: BP 138/63
[2018-06-06] MEDS: PIPERACILLIN/TAZOBACTAM 3.375 GM in IV NORMAL SALINE 50ML 50 ML IV SCH (06:05)
[2018-06-06 07:00] VITALS: BP 155/80
[2018-06-06] MEDS: HYDROcodone/APAP 5/325MG 1 TAB TABLET PO PRN (08:17)
[2018-06-06] MEDS: NICOTINE 21MG PATCH. TD SCH (09:00)
[2018-06-06] MEDS: LACTOBACILLUS RHAMNOSUS GG 1 CAPSULE. PO SCH (09:05)
[2018-06-06] MEDS: LINEZOLID 600 MG TABLET PO SCH (09:05)
--- NOTE | 2018-06-06 09:46 | PDOC ---
SURGICAL PROGRESS NOTE Subjective neck still hurts maybe a little better asking about going home at bedside Vital Signs Vital Signs Date Time Temp Pulse Resp B/P (MAP) Pulse Ox O2 Delivery O2 Flow Rate FiO2 06/06/18 08:17 20 93 Room Air 06/06/18 07:00 97.9 52 155/80 (105) 97.9 06/05/18 16:43 2.0 I&O Intake and Output 06/06/18 07:00 Intake Total 1390 ml Output Total 0 ml Balance 1390 ml Intake Oral 1340 ml IV Total 50 ml Output Urine Total 0 ml # Voids 4 PATIENT HAS A VILLARREAL: No General: Alert, No acute distress Skin: Other (a little less erythema over right posterior neck) Labs Laboratory Tests Test 06/04/18 14:15 06/05/18 08:25 Erythrocyte Sedimentation Rate 14 (0-15) White Blood Count 11.1 x10^3/uL (4.0-11.0) Red Blood Count 4.94 x10^6/uL (4.30-5.70) Hemoglobin 14.7 g/dL (13.0-17.5) Hematocrit 43.9 % (39.0-53.0) Mean Corpuscular Volume 89 fL (79-100) Mean Corpuscular Hemoglobin 30 pg (25-35) Mean Corpuscular Hemoglobin Concent 33 g/dL (31-37) Red Cell Distribution Width 14.4 % (11.5-14.5) Platelet Count 176 x10^3/uL (140-400) Neutrophils (%) (Auto) 75 % (31-73) Lymphocytes (%) (Auto) 14 % (24-48) Monocytes (%) (Auto) 8 % (0-9) Eosinophils (%) (Auto) 3 % (0-3) Basophils (%) (Auto) 1 % (0-3) Neutrophils # (Auto) 8.3 x10^3uL (1.8-7.7) Lymphocytes # (Auto) 1.5 x10^3/uL (1.0-4.8) Monocytes # (Auto) 0.9 x10^3/uL (0.0-1.1) Eosinophils # (Auto) 0.3 x10^3/uL (0.0-0.7) Basophils # (Auto) 0.1 x10^3/uL (0.0-0.2) Sodium Level 141 mmol/L (136-145) Potassium Level 3.7 mmol/L (3.5-5.1) Chloride Level 106 mmol/L (98-107) Carbon Dioxide Level 26 mmol/L (21-32) Anion Gap 9 (6-14) Blood Urea Nitrogen 7 mg/dL (8-26) Creatinine 0.9 mg/dL (0.7-1.3) Estimated GFR (Cockcroft-Gault) 87.0 BUN/Creatinine Ratio 8 (6-20) Glucose Level 143 mg/dL (70-99) Calcium Level 8.3 mg/dL (8.5-10.1) Total Bilirubin 0.7 mg/dL (0.2-1.0) Aspartate Amino Transf (AST/SGOT) 24 U/L (15-37) Alanine Aminotransferase (ALT/SGPT) 36 U/L (16-63) Alkaline Phosphatase 120 U/L (46-116) Total Protein 6.4 g/dL (6.4-8.2) Albumin 2.5 g/dL (3.4-5.0) Albumin/Globulin Ratio 0.6 (1.0-1.7) Problem List Problems Medical Problems: (1) Cellulitis of neck Status: Acute (2) Cellulitis of scalp Status: Acute Assessment/Plan right neck cellulitis as per ID no surgical recs d/w pt and his MEGHA MAGUIRE MD Jun 06, 2018 09:46
[2018-06-06 11:00] VITALS: BP 136/86
--- NOTE | 2018-06-06 11:30 | PDOC ---
PROGRESS NOTES Chief Complaint Chief Complaint Right neck cellulitis Fever Leucocytosis Lactic acidosis Rt 4th finger abrasion with swelling Scattered skin lesions in LLE,Rt Pentecostal and chin History of Present Illness History of Present Illness Mr. Mcmanus is a 70 y/o male who has R neck cellulitis currently on IV antibiotics. ID is following. He is taking SQ lovenox for DVT prophylaxis. General surgery suggest ENT surgery for drainage. Will start the transfer to dw/ RN. Pt is complaining of pain from his right neck cellulitis. It is diffusely TTP. PO lortab, or IV morphine for pain. Pt seen and examined, pt complaining of sweating and being uncomfortable. He wants to smoke a cigarette. He has smoke a package a day up until being admitted to the hospital. He threatened to leave the hospital, which I advised against Pt alert and oriented; affect is agitated VSS DW nursing Female friend at bedside Vitals Vitals Vital Signs Date Time Temp Pulse Resp B/P (MAP) Pulse Ox O2 Delivery O2 Flow Rate FiO2 06/06/18 11:00 97.8 56 20 136/86 (103) 93 2L/PRN 97.8 06/05/18 16:43 2.0 Physical Exam General: Alert, No acute distress Heart: Regular rate Lungs: Clear Abdomen: Soft Extremities: No clubbing, No cyanosis, No edema, Other (R neck cellulitis; possible abscess?) Skin: Other (a little less erythema over right posterior neck) Review of Systems Review of Systems CO sweating CO pain Assessment and Plan Assessmemt and Plan Problems Medical Problems: (1) Cellulitis of neck Status: Acute (2) Cellulitis of scalp Status: Acute Right neck cellulitis Fever Leucocytosis Lactic acidosis Rt 4th finger abrasion with swelling Scattered skin lesions in LLE,Rt Pentecostal and chin Plan: Transfer to for drainage of possible neck abscess IV Abx PRN narcotics Home Meds Labs Comment Review of Relevant I have reviewed the following items nhan (where applicable) has been applied. Labs Laboratory Tests Test 06/04/18 14:15 06/05/18 08:25 Erythrocyte Sedimentation Rate 14 (0-15) White Blood Count 11.1 x10^3/uL (4.0-11.0) Red Blood Count 4.94 x10^6/uL (4.30-5.70) Hemoglobin 14.7 g/dL (13.0-17.5) Hematocrit 43.9 % (39.0-53.0) Mean Corpuscular Volume 89 fL (79-100) Mean Corpuscular Hemoglobin 30 pg (25-35) Mean Corpuscular Hemoglobin Concent 33 g/dL (31-37) Red Cell Distribution Width 14.4 % (11.5-14.5) Platelet Count 176 x10^3/uL (140-400) Neutrophils (%) (Auto) 75 % (31-73) Lymphocytes (%) (Auto) 14 % (24-48) Monocytes (%) (Auto) 8 % (0-9) Eosinophils (%) (Auto) 3 % (0-3) Basophils (%) (Auto) 1 % (0-3) Neutrophils # (Auto) 8.3 x10^3uL (1.8-7.7) Lymphocytes # (Auto) 1.5 x10^3/uL (1.0-4.8) Monocytes # (Auto) 0.9 x10^3/uL (0.0-1.1) Eosinophils # (Auto) 0.3 x10^3/uL (0.0-0.7) Basophils # (Auto) 0.1 x10^3/uL (0.0-0.2) Sodium Level 141 mmol/L (136-145) Potassium Level 3.7 mmol/L (3.5-5.1) Chloride Level 106 mmol/L (98-107) Carbon Dioxide Level 26 mmol/L (21-32) Anion Gap 9 (6-14) Blood Urea Nitrogen 7 mg/dL (8-26) Creatinine 0.9 mg/dL (0.7-1.3) Estimated GFR (Cockcroft-Gault) 87.0 BUN/Creatinine Ratio 8 (6-20) Glucose Level 143 mg/dL (70-99) Calcium Level 8.3 mg/dL (8.5-10.1) Total Bilirubin 0.7 mg/dL (0.2-1.0) Aspartate Amino Transf (AST/SGOT) 24 U/L (15-37) Alanine Aminotransferase (ALT/SGPT) 36 U/L (16-63) Alkaline Phosphatase 120 U/L (46-116) Total Protein 6.4 g/dL (6.4-8.2) Albumin 2.5 g/dL (3.4-5.0) Albumin/Globulin Ratio 0.6 (1.0-1.7) Microbiology 06/02/18 Blood Culture - Preliminary, Resulted NO GROWTH AFTER 3 DAYS Medications Current Medications Morphine Sulfate (Morphine Sulfate) 4 mg 1X ONCE IV Last administered on at 14:34; Start 06/02/18 at 14:15; Stop 06/02/18 at 14:16; Status DC Ondansetron HCl (Zofran) 4 mg 1X ONCE IV Last administered on 06/02/18at 14:35 ; Start 06/02/18 at 14:15; Stop 06/02/18 at 14:16; Status DC Sodium Chloride 1,000 ml @ 1,000 mls/hr 1X ONCE IV Last administered on at 14:33; Start 06/02/18 at 14:15; Stop 06/02/18 at 15:14; Status DC Iohexol (Omnipaque 300 Mg/ml) 75 ml 1X ONCE IV Last administered on 06/02/18at 15:13; Start 06/02/18 at 14:45; Stop 06/02/18 at 14:46; Status DC Sodium Chloride 1,000 ml @ 1,000 mls/hr 1X ONCE IV Last administered on at 17:00; Start 06/02/18 at 15:30; Stop 06/02/18 at 16:29; Status DC Vancomycin HCl (Vanco Per Pharmacy) 1 each PRN DAILY PRN MC SEE COMMENTS Last administered on 06/04/18at 04:51; Start 06/02/18 at 15:30; Stop 06/05/18 at 11: 39; Status DC Vancomycin HCl 2 gm/Sodium Chloride 500 ml @ 250 mls/hr 1X ONCE IV Last administered on 06/02/18at 15:49; Start 06/02/18 at 16:00; Stop 06/02/18 at 17:59 ; Status DC Ondansetron HCl (Zofran) 4 mg PRN Q8HRS PRN IV NAUSEA/VOMITING; Start 06/02/18 at 16:45; Stop 06/03/18 at 16:44; Status DC Morphine Sulfate (Morphine Sulfate) 2 mg PRN Q2HR PRN IV PAIN Last administered on 06/03/18at 01:32; Start 06/02/18 at 16:45; Stop 06/03/18 at 14: 04; Status DC Sodium Chloride 1,000 ml @ 150 mls/hr Q6H40M IV Last administered on at 03:50; Start 06/02/18 at 16:41; Stop 06/03/18 at 16:40; Status DC Meropenem 500 mg/ Sodium Chloride 50 ml @ 100 mls/hr Q8H IV Last administered on 06/05/18at 06:28; Start 06/02/18 at 17:00; Stop 06/05/18 at 11:37; Status DC Vancomycin HCl 1.5 gm/Sodium Chloride 500 ml @ 250 mls/hr Q12H IV Last administered on 06/05/18at 04:22; Start 06/03/18 at 04:00; Stop 06/05/18 at 11 :37; Status DC Vancomycin HCl (Vancomycin Trough Level) 1 each 1X ONCE MC Last administered on 06/04/18at 03:30; Start 06/04/18 at 03:30; Stop 06/04/18 at 03:31; Status DC Enoxaparin Sodium (Lovenox 40mg Syringe) 40 mg Q24H SQ Last administered on 08/11at 20:39; Start 06/02/18 at 21:00 Potassium Chloride (Klor-Con) 40 meq 1X ONCE PO Last administered on at 20:38; Start 06/02/18 at 19:30; Stop 06/02/18 at 19:31; Status DC Sodium Chloride 1,000 ml @ 2,130 mls/hr Q29M IV Last administered on at 20:37; Start 06/02/18 at 19:05; Stop 06/02/18 at 20:05; Status DC Sodium Chloride 500 ml @ 1,000 mls/hr PRN Q30MIN PRN IV SEE COMMENTS; Start 06/02/18 at 19:15 Levofloxacin/ Dextrose 150 ml @ 100 mls/hr Q24H IV ; Start 06/02/18 at 19:15; Stop 06/07/18 at 19:14; Status UNV Vancomycin HCl (Vanco Per Pharmacy) 1 each PRN DAILY PRN MC SEE COMMENTS; Start 06/02/18 at 19:15; Status UNV Linezolid/Dextrose 300 ml @ 300 mls/hr Q12HR IV ; Start 06/02/18 at 21:00; Status UNV Norepinephrine Bitartrate 250 ml @ 0 mls/hr CONT PRN IV SEE I/O RECORD; Start 06/02/18 at 19:15; Status UNV Dobutamine HCl/ Dextrose 250 ml @ 0 mls/hr CONT PRN IV SEE I/O RECORD; Start 06/02/18 at 19:15; Status UNV Ketorolac Tromethamine (Toradol 30mg Vial) 30 mg PRN Q6HRS PRN IV MILD PAIN Last administered on 06/05/18at 23:33; Start 06/03/18 at 02:30; Stop 06/08/18 at 02:29 Morphine Sulfate (Morphine Sulfate) 4 mg PRN Q2HR PRN IV PAIN Last administered on 06/03/18at 08:20; Start 06/03/18 at 02:30; Stop 06/03/18 at 14 :05; Status DC Linezolid (Zyvox) 600 mg BID PO Last administered on 06/06/18at 09:05; Start 06/03/18 at 11:00 Morphine Sulfate (Morphine Sulfate) 2 mg PRN Q2HR PRN IV MODERATE/SEVERE PAIN Last administered on 06/03/18at 17:34; Start 06/03/18 at 14:00 Iohexol (Omnipaque 300 Mg/ml) 70 ml 1X ONCE IV Last administered on at 12:52; Start 06/04/18 at 12:45; Stop 06/04/18 at 12:46; Status DC Info (CONTRAST GIVEN -- Rx MONITORING) 1 each PRN DAILY PRN MC SEE COMMENTS; Start 06/04/18 at 12:45; Stop 06/06/18 at 12:44 Acetaminophen/ Hydrocodone Bitart (Lortab 5/325) 1 tab PRN Q4HRS PRN PO MODERATE PAIN Last administered on 06/06/18at 08:17; Start 06/04/18 at 12:45 Lactobacillus Rhamnosus (Culturelle) 1 cap BID PO Last administered on at 09:05; Start 06/04/18 at 21:00 Piperacillin Sod/ Tazobactam Sod 3.375 gm/Sodium Chloride 50 ml @ 100 mls/hr Q6HRS IV Last administered on 06/06/18at 06:05; Start 06/05/18 at 12:00 Nicotine (Nicoderm Cq 21mg) 1 patch DAILY TD Last administered on 06/05/18at 13 :52; Start 06/05/18 at 14:00 Vitals/I & O Vital Sign - Last 24 Hours 06/05/18 06/05/18 06/05/18 06/05/18 15:00 15:36 16:43 19:00 Temp 98.1 98.8 98.1 98.8 Pulse 48 59 Resp 22 18 B/P (MAP) 152/80 (104) 128/68 (88) Pulse Ox 98 93 94 O2 Delivery Room Air Room Air Room Air O2 Flow Rate 2.0 06/05/18 06/05/18 06/05/18 06/05/18 20:30 20:38 21:38 23:00 Temp 98.1 98.1 Pulse 60 Resp 20 20 18 B/P (MAP) 159/75 (103) Pulse Ox 99 O2 Delivery Room Air Room Air Room Air Room Air 06/06/18 06/06/18 06/06/18 06/06/18 03:00 07:00 08:00 08:17 Temp 97.7 97.9 97.7 97.9 Pulse 50 52 Resp 18 20 20 B/P (MAP) 138/63 (88) 155/80 (105) Pulse Ox 94 97 93 O2 Delivery Room Air 2L/PRN Room Air Room Air 06/06/18 11:00 Temp 97.8 97.8 Pulse 56 Resp 20 B/P (MAP) 136/86 (103) Pulse Ox 93 O2 Delivery 2L/PRN Intake and Output 06/05/18 06/05/18 06/06/18 15:00 23:00 07:00 Intake Total 370 ml 970 ml 50 ml Output Total 0 ml Balance 370 ml 970 ml 50 ml CASTGIRMA GONZALEZL K III DO Jun 06, 2018 11:30
== END 2018-06-06 12:20 | disposition home or self-care (01) | DRG 872 ==
LOC: ER 13:31 → 5 SOUTH 16:30
PROVIDERS: ADMIT Family Medicine; ATTEND Family Medicine
DX: A41.9 Sepsis, unspecified organism (principal); L03.811 Cellulitis of head [any part, except face]; L03.221 Cellulitis of neck; L02.821 Furuncle of head [any part, except face]; F17.210 Nicotine dependence, cigarettes, uncomplicated; S60.511A Abrasion of right hand, initial encounter; I10 Essential (primary) hypertension; S60.414A Abrasion of right ring finger, initial encounter; X58.XXXA Exposure to other specified factors, initial encounter; Y93.89 Activity, other specified; Y92.89 Other specified places as the place of occurrence of the external cause; Y99.8 Other external cause status; Z82.49 Family history of ischemic heart disease and other diseases of the circulatory system; Z90.49 Acquired absence of other specified parts of digestive tract
CPT/HCPCS: 36415; 70460; 70491; 73130; 80048; 80053; 80202; 83605; 84145; 85025; 85610; 85651; 85730; 86140; 87040; 87641; 96361; 96365; 96366; 96375; J1650; J1885; J2185; J2270; J2405; J2543; J3370; J7030; J7040; Q9967; 99285-25